=== PATIENT | female | born 1965 | race Asian ===

== ENCOUNTER 2024-02-24 08:40 | Outpatient (RCR) | payer BC, SELFPAY ==
[2024-02-24 09:08] LABS: Basophils # (Auto) 0.1 Thou/mm3 (0.0-0.2); Basophils % (Auto) 1 % (0-2.5); Eosinophils # (Auto) 0.2 Thou/mm3 (0.0-0.5); Eosinophils % (Auto) 4 % (0-10); Hematocrit 33.9 % (36.0-46.0); Hemoglobin 11.6 g/dL (12.0-16.0); Immature Granulocytes % (Auto) 0 % (0-0); Immature Granulocytes Auto 0.01 Thou/mm3 (0.00-0.00); Lymphocytes # (Auto) 1.3 Thou/mm3 (1.0-4.8); Lymphocytes % (Auto) 26 % (10-50); Mean Corpuscular HGB Conc 34.2 g/dl (31.0-37.0); Mean Corpuscular Hemoglobin 33.7 pg (25.0-35.0); Mean Corpuscular Volume 99 fL (80-100); Monocytes # (Auto) 0.4 Thou/mm3 (0.0-0.8); Monocytes % (Auto) 9 % (0-12); Neutrophils # (Auto) 2.9 Thou/mm3 (1.8-7.7); Neutrophils % (Auto) 60 % (37-80); Nucleated Red Blood Cell % 0 /100 WBC (0); Platelet Count 222 Thou/mm3 (140-440); RDW Standard Deviation 54.1 fL (36.4-46.3); Red Blood Count 3.44 Miln/mm3 (4.00-5.20); White Blood Count 4.9 Thou/mm3 (3.6-11.0)
[2024-02-24 09:29] LABS: Alanine Aminotransferase 17 U/L (10-49); Albumin, Serum 4.2 gm/dL (3.5-5.0); Albumin/Globulin Ratio 1.4 (1.2-2.2); Alkaline Phosphatase 96 U/L (46-116); Anion Gap 6 (7-16); Aspartate Amino Transferase 24 U/L (0-34); BUN/Creatinine Ratio 23 Ratio (12-20); Bilirubin,Total 0.4 mg/dL (0.3-1.2); Blood Urea Nitrogen 16 mg/dL (9-23); Calcium 9.4 mg/dL (8.3-10.6); Calcium (Corrected) 9.4 mg/dL (8.5-10.1); Chloride 104 mMol/L (98-107); Creatinine (Component) 0.7 mg/dL (0.6-1.3); Globulin 3.1 gm/dL (2.3-3.5); Glucose 156 mg/dL (74-106); Osmolality,Calculated 279 (275-295); Potassium 3.4 mMol/L (3.4-5.1); Sodium 138 mMol/L (136-145); Total Protein 7.3 gm/dL (5.7-8.2); eGFR > 60 See Note
[2024-02-24 09:48] LABS: CA 15-3 25.4 U/mL (<32.4); Carcinoembryonic Antigen 2.6 ng/mL (0.0-5.0)
== END 2024-03-13 23:59 | disposition home or self-care (01) ==
LOC: SCTC 08:40
PROVIDERS: PCP Family Medicine; Referring Provider Internal Medicine Hematology & Oncology; Visit Provider Internal Medicine Hematology & Oncology
DX: Z51.11 Encounter for antineoplastic chemotherapy (principal); C50.912 Malignant neoplasm of unspecified site of left female breast; C78.7 Secondary malignant neoplasm of liver and intrahepatic bile duct; C78.02 Secondary malignant neoplasm of left lung; C78.01 Secondary malignant neoplasm of right lung; Z17.0 Estrogen receptor positive status [ER+]; Z17.21 Progesterone receptor positive status; Z17.32 Human epidermal growth factor receptor 2 negative status; Z90.12 Acquired absence of left breast and nipple
CPT/HCPCS: 80053; 82378; 85025; 86300; 96367; 96413; A4216; J1642; J2405; J7060; J9358

== ENCOUNTER 2024-03-22 08:44 | Outpatient (RCR) | payer BC, SELFPAY ==
[2024-03-22 09:10] LABS: Basophils # (Auto) 0.1 Thou/mm3 (0.0-0.2); Basophils % (Auto) 1 % (0-2.5); Eosinophils # (Auto) 0.2 Thou/mm3 (0.0-0.5); Eosinophils % (Auto) 2 % (0-10); Hemoglobin 11.8 g/dL (12.0-16.0); Immature Granulocytes % (Auto) 0 % (0-0); Immature Granulocytes Auto 0.04 Thou/mm3 (0.00-0.00); Lymphocytes # (Auto) 1.6 Thou/mm3 (1.0-4.8); Lymphocytes % (Auto) 18 % (10-50); Mean Corpuscular HGB Conc 33.7 g/dl (31.0-37.0); Mean Corpuscular Hemoglobin 33.1 pg (25.0-35.0); Mean Corpuscular Volume 98 fL (80-100); Monocytes # (Auto) 0.6 Thou/mm3 (0.0-0.8); Monocytes % (Auto) 7 % (0-12); Neutrophils # (Auto) 6.5 Thou/mm3 (1.8-7.7); Neutrophils % (Auto) 73 % (37-80); Nucleated Red Blood Cell % 0 /100 WBC (0); Platelet Count 245 Thou/mm3 (140-440); RDW Standard Deviation 50.3 fL (36.4-46.3); Red Blood Count 3.56 Miln/mm3 (4.00-5.20); White Blood Count 8.9 Thou/mm3 (3.6-11.0)
[2024-03-22 09:28] LABS: Alanine Aminotransferase 13 U/L (10-49); Albumin, Serum 4.5 gm/dL (3.5-5.0); Albumin/Globulin Ratio 1.5 (1.2-2.2); Alkaline Phosphatase 100 U/L (46-116); Anion Gap 8 (7-16); Aspartate Amino Transferase 18 U/L (0-34); BUN/Creatinine Ratio 20 Ratio (12-20); Bilirubin,Total 0.4 mg/dL (0.3-1.2); Blood Urea Nitrogen 16 mg/dL (9-23); Calcium 9.5 mg/dL (8.3-10.6); Calcium (Corrected) 9.5 mg/dL (8.5-10.1); Carbon Dioxide 29.5 mMol/L (20.0-31.0); Chloride 103 mMol/L (98-107); Creatinine (Component) 0.8 mg/dL (0.6-1.3); Glucose 151 mg/dL (74-106); Osmolality,Calculated 283 (275-295); Potassium 3.6 mMol/L (3.4-5.1); Sodium 140 mMol/L (136-145); Total Protein 7.5 gm/dL (5.7-8.2); eGFR > 60 See Note
[2024-03-22 09:46] LABS: CA 15-3 27.7 U/mL (<32.4); Carcinoembryonic Antigen 2.7 ng/mL (0.0-5.0)
== END 2024-04-13 23:59 | disposition home or self-care (01) ==
LOC: SCTC 08:44
PROVIDERS: PCP Family Medicine; Referring Provider Family Medicine; Visit Provider Internal Medicine Hematology & Oncology
DX: Z51.11 Encounter for antineoplastic chemotherapy (principal); C50.912 Malignant neoplasm of unspecified site of left female breast; C78.7 Secondary malignant neoplasm of liver and intrahepatic bile duct; C78.02 Secondary malignant neoplasm of left lung; C78.01 Secondary malignant neoplasm of right lung; Z17.0 Estrogen receptor positive status [ER+]; Z17.21 Progesterone receptor positive status; Z17.32 Human epidermal growth factor receptor 2 negative status; Z90.12 Acquired absence of left breast and nipple
CPT/HCPCS: 80053; 82378; 85025; 86300; 96367; 96413; A4216; J1642; J2405; J7060; J9358

== ENCOUNTER 2024-05-10 08:08 | Outpatient (RCR) | payer BC, SELFPAY ==
[2024-04-19 09:22] LABS: Basophils # (Auto) 0.1 Thou/mm3 (0.0-0.2); Basophils % (Auto) 1 % (0-2.5); Eosinophils # (Auto) 0.2 Thou/mm3 (0.0-0.5); Eosinophils % (Auto) 4 % (0-10); Hematocrit 33.3 % (36.0-46.0); Hemoglobin 10.9 g/dL (12.0-16.0); Immature Granulocytes % (Auto) 1 % (0-0); Immature Granulocytes Auto 0.03 Thou/mm3 (0.00-0.00); Lymphocytes # (Auto) 1.5 Thou/mm3 (1.0-4.8); Lymphocytes % (Auto) 29 % (10-50); Mean Corpuscular HGB Conc 32.7 g/dl (31.0-37.0); Mean Corpuscular Hemoglobin 32.8 pg (25.0-35.0); Mean Corpuscular Volume 100 fL (80-100); Monocytes # (Auto) 0.5 Thou/mm3 (0.0-0.8); Monocytes % (Auto) 10 % (0-12); Neutrophils # (Auto) 2.9 Thou/mm3 (1.8-7.7); Neutrophils % (Auto) 56 % (37-80); Nucleated Red Blood Cell % 0 /100 WBC (0); Platelet Count 259 Thou/mm3 (140-440); RDW Standard Deviation 50.8 fL (36.4-46.3); Red Blood Count 3.32 Miln/mm3 (4.00-5.20); White Blood Count 5.2 Thou/mm3 (3.6-11.0)
[2024-04-19 09:28] LABS: Alanine Aminotransferase 13 U/L (10-49); Albumin, Serum 3.9 gm/dL (3.5-5.0); Albumin/Globulin Ratio 1.1 (1.2-2.2); Alkaline Phosphatase 101 U/L (46-116); Anion Gap 6 (7-16); Aspartate Amino Transferase 22 U/L (0-34); BUN/Creatinine Ratio 20 Ratio (12-20); Bilirubin,Total 0.3 mg/dL (0.3-1.2); Blood Urea Nitrogen 16 mg/dL (9-23); Calcium 9.3 mg/dL (8.3-10.6); Calcium (Corrected) 9.4 mg/dL (8.5-10.1); Carbon Dioxide 29.1 mMol/L (20.0-31.0); Chloride 105 mMol/L (98-107); Creatinine (Component) 0.8 mg/dL (0.6-1.3); Globulin 3.5 gm/dL (2.3-3.5); Glucose 145 mg/dL (74-106); Osmolality,Calculated 283 (275-295); Potassium 3.6 mMol/L (3.4-5.1); Sodium 140 mMol/L (136-145); Total Protein 7.4 gm/dL (5.7-8.2); eGFR > 60 See Note
[2024-04-19 09:57] LABS: CA 15-3 30.7 U/mL (<32.4); Carcinoembryonic Antigen 2.7 ng/mL (0.0-5.0)
[2024-05-10 08:53] LABS: Basophils # (Auto) 0.1 Thou/mm3 (0.0-0.2); Basophils % (Auto) 2 % (0-2.5); Eosinophils # (Auto) 0.2 Thou/mm3 (0.0-0.5); Eosinophils % (Auto) 4 % (0-10); Hematocrit 32.3 % (36.0-46.0); Hemoglobin 10.6 g/dL (12.0-16.0); Immature Granulocytes % (Auto) 0 % (0-0); Immature Granulocytes Auto 0.02 Thou/mm3 (0.00-0.00); Lymphocytes # (Auto) 1.2 Thou/mm3 (1.0-4.8); Lymphocytes % (Auto) 25 % (10-50); Mean Corpuscular HGB Conc 32.8 g/dl (31.0-37.0); Mean Corpuscular Hemoglobin 32.7 pg (25.0-35.0); Mean Corpuscular Volume 100 fL (80-100); Monocytes # (Auto) 0.5 Thou/mm3 (0.0-0.8); Monocytes % (Auto) 10 % (0-12); Neutrophils # (Auto) 2.9 Thou/mm3 (1.8-7.7); Neutrophils % (Auto) 60 % (37-80); Nucleated Red Blood Cell % 0 /100 WBC (0); Platelet Count 244 Thou/mm3 (140-440); RDW Standard Deviation 52.5 fL (36.4-46.3); Red Blood Count 3.24 Miln/mm3 (4.00-5.20); White Blood Count 4.8 Thou/mm3 (3.6-11.0)
[2024-05-10 09:13] LABS: Alanine Aminotransferase 11 U/L (10-49); Albumin, Serum 3.8 gm/dL (3.5-5.0); Albumin/Globulin Ratio 1.2 (1.2-2.2); Alkaline Phosphatase 81 U/L (46-116); Anion Gap 7 (7-16); Aspartate Amino Transferase 23 U/L (0-34); BUN/Creatinine Ratio 18 Ratio (12-20); Bilirubin,Total 0.5 mg/dL (0.3-1.2); Blood Urea Nitrogen 14 mg/dL (9-23); Calcium 9.6 mg/dL (8.3-10.6); Calcium (Corrected) 9.8 mg/dL (8.5-10.1); Carbon Dioxide 28.4 mMol/L (20.0-31.0); Chloride 104 mMol/L (98-107); Creatinine (Component) 0.8 mg/dL (0.6-1.3); Globulin 3.2 gm/dL (2.3-3.5); Glucose 155 mg/dL (74-106); Osmolality,Calculated 281 (275-295); Potassium 3.7 mMol/L (3.4-5.1); Sodium 139 mMol/L (136-145); eGFR > 60 See Note
[2024-05-10 13:01] LABS: CA 15-3 25.5 U/mL (<32.4); Carcinoembryonic Antigen 2.8 ng/mL (0.0-5.0)
== END 2024-05-14 23:59 | disposition home or self-care (01) ==
LOC: SCTC 08:08
PROVIDERS: PCP Family Medicine; Referring Provider Family Medicine; Visit Provider Internal Medicine Hematology & Oncology
DX: Z51.11 Encounter for antineoplastic chemotherapy (principal); C50.912 Malignant neoplasm of unspecified site of left female breast; C78.7 Secondary malignant neoplasm of liver and intrahepatic bile duct; C78.02 Secondary malignant neoplasm of left lung; C78.01 Secondary malignant neoplasm of right lung; Z17.0 Estrogen receptor positive status [ER+]; Z17.21 Progesterone receptor positive status; Z17.32 Human epidermal growth factor receptor 2 negative status
CPT/HCPCS: 80053; 82378; 85025; 86300; 96367; 96413; A4216; J1642; J2405; J7060; J9358

== ENCOUNTER 2024-06-07 08:41 | Outpatient (RCR) | payer BC, SELFPAY ==
--- NOTE | 2024-05-24 16:17 | CTCFLWUP_ITS ---
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 12/15/2014: Patient underwent left breast biopsy. Pathology showed invasive lobular carcinoma. She had palpable supraclavicular lymph node. The tumor was ER positive, WA positive as well as HER2/murtaza Positive (3+). Ms. Tinsley was treated with neoadjuvant chemotherapy including Herceptin. Ms. Tinsley had left mastectomy and sentinel lymph node biopsy. She had 4.6 cm residual tumor with 1 of 2 sentinel lymph nodes being positive. Ms. Tinsley had adjuvant radiation therapy and treated with tamoxifen following radiation therapy. August 2019: Patient felt a lump left chest wall. 09/30/2019: FNA with attempted local excision on 10/08/2019. Pathology showed 1.3 cm tumor, mixed invasive ductal and lobular carcinoma. Again the tumor was ER, WA as well as HER2/murtaza positive inferior lateral and posterior margins were positive. 11/23/2019: Patient underwent wider resection including removal of the pectoralis major muscle followed by reconstruction with left latissimus dorsi flap.. Tamoxifen was discontinued and she was started on letrozole. 10/31/2022: Patient was found to have right supraclavicular lymphadenopathy. Biopsy showed metastatic breast cancer. She was also found to have involvement of the liver and the lungs patient was started on Faslodex. She had a second opinion at [facility]. Faslodex was discontinued after 2 doses. Patient was started on Trastuzumab Deruxtecan (Enhertu). 12/20/2022: Patient received first dose of Trastuzumab Deruxtecan (Enhertu) 02/28/2023: CT scan of the chest abdomen and pelvis with contrast which was compared to previous scans done on 11/01/2022 09/12/2023: Patient received last dose of Trastuzumab Deruxtecan (Enhertu). 05/16/2023: CT scan of the chest abdomen and pelvis with contrast was done which was compared to CT scans done on 02/28/2023. 05/16/2023: MRI of the abdomen with and without contrast was compared to previous PET/CT scan done on 11/06/[address] scans done on the same date 05/16/2023. 10/09/2023 Fam-trastuzumab deruxtecan-nxki ( Enhertu). PAST MEDICAL HISTORY: Bladder stone treated with lithotripsy in 2021 OTHER MEDICAL HISTORY/CONDITIONS: Left breast cancer - dx 2014 Osteoarthirits Left mastectomy wtih [place] node biopsy 2016 wide excision left chest mass including left pectoralis muscle - 11/23/2019 Left breast reconstruction Right supraclavicular biopsy - 11/03 ?Clone Other Med Hx? FAMILY HISTORY: Cancer History:?Pat 1st cousin - brest dx age 60 ?Clone Family Hx? 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 MEDICATIONS: 1. anastrozole - 1 mg 1 tab Daily 2. multivitamin - 1 Capsule Daily?Palabra Meds? Medications Last Reconciled by Concepción Whaley MA on 05/24/2024 ALLERGIES: No Known Drug Allergies REVIEW OF SYSTEMS: A complete 14-point review of systems was performed and is negative except as noted in interval history. PHYSICAL EXAMINATION: VITAL SIGNS: PAIN: 0 - No pain ECOG Performance Status: 1 - Symptomatic; ambulatory; restricted in strenuous activity GENERAL APPEARANCE: Appears well, in no apparent distress, appropriately interactive. HEENT: Normocephalic, no temporal wasting, normal conjunctiva, no scleral icterus, normal hearing, lips without lesions, neck normal range of motion. CARDIOVASCULAR: Not assessed. PULMONARY: Normal respiratory effort, no respiratory distress or use of accessory muscles, speaking in full sentences, no tachypnea. EXTREMITIES: No pedal edema or cyanosis. SKIN: Normal skin appearance. NEUROLOGIC: Alert and oriented x4. PSHYCHIATRIC: Appropriate affect, mood normal, behavior normal, intact thought and speech. LABORATORY DATA: I have personally reviewed and interpreted each of the patient?s relevant lab tests, abnormal findings are below: Date 05/10/24 ??WHITE?BLOOD?COUNT?(Thou/mm3) 4.8 ??RED?BLOOD?COUNT?(Miln/mm3) 3.24?L ??HEMOGLOBIN?(gm/dl) 10.6?L ??HEMATOCRIT?(%) 32.3?L ??PLATELET?COUNT?(Thou/mm3) 244 ??NEUTROPHILS?%,?AUTO?(%) 60 ??LYMPH?%,?AUTO?(%) 25 ??NEUTROPHILS,?AUTO?(Thou/mm3) 2.9 ASSESSMENT/PLAN: Metastatic ER positive, WA positive, HER2/murtaza overexpressed 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 Patient was initially diagnosed in 2014. She was in menopause at that time. Patient received antiendocrine therapy and Herceptin in the adjuvant setting. She did have residual tumor after the neoadjuvant therapy but only Herceptin was offered and not TDM 1. I am not sure if TDM 1 was approved at that time. Patient then continued letrozole for few months before stopping it. At reoccurrence patient was initially started on Faslodex after she was not able to tolerated it was stopped. The patient is started back on Fam-trastuzumab deruxtecan-nxki ( Enhertu) here in [place] on 10/09/2023. She is tolerating it very well without any significant side effects Previously patient was treated with tamoxifen as well as anastrozole. She also received 2 doses of Faslodex. BRCA 1 and 2 as well as [facility] cancer test did not show any abnormal genes Continue Fam-trastuzumab deruxtecan-nxki ( Enhertu). Will follow-up on the CT scan of the chest abdomen and pelvis with IV contrast . Ordered x-ray chest per patient today as needed if she notices any chest pain shortness of breath Will continue x-ray chest once in a month to catch pneumonitis early if any Foundation 1 do not reveal any mutations CT scan is stable with no evidence of progression of disease Will proceed with the next cycle of Enhertu. Echo stable next 1 due in May CBC CMP CEA CA 15-3 MRI brain iron studies ferritin RETURN TO CLINIC: I will see her back in the clinic in 2 months. BILLING AND COMPLIANCE: I reviewed external records from providers outside my specialty as summarized above. I spent a total of 50 minutes on this patient?s care on the day of their visit excluding time spent related to any billed procedures. This time includes time spent with the patient as well as time spent documenting in the medical record, reviewing patients records and tests, obtaining history, placing orders, communicating with other healthcare professionals, counseling the patient, family or caregiver, and/or care coordination for the diagnoses above. Electronically Signed by: Cuauhtemoc Ortega MD T: 4:15 PM CC: PCP: Referring: Samia Ramírez This document was completed utilizing speech recognition software. Grammatical errors, random word insertions, pronoun errors, and incomplete sentences are an occasional consequence of this system due to software limitations, ambient noise, and hardware issues. Any formal questions or concerns about the content, text or information contained within the body of this dictation should be directly addressed to the provider for clarification.
[2024-06-07 09:43] LABS: Basophils # (Auto) 0.1 Thou/mm3 (0.0-0.2); Basophils % (Auto) 1 % (0-2.5); Eosinophils # (Auto) 0.2 Thou/mm3 (0.0-0.5); Eosinophils % (Auto) 3 % (0-10); Hematocrit 34.1 % (36.0-46.0); Hemoglobin 11.3 g/dL (12.0-16.0); Immature Granulocytes % (Auto) 1 % (0-0); Immature Granulocytes Auto 0.03 Thou/mm3 (0.00-0.00); Lymphocytes # (Auto) 1.3 Thou/mm3 (1.0-4.8); Lymphocytes % (Auto) 24 % (10-50); Mean Corpuscular HGB Conc 33.1 g/dl (31.0-37.0); Mean Corpuscular Hemoglobin 32.1 pg (25.0-35.0); Mean Corpuscular Volume 97 fL (80-100); Monocytes # (Auto) 0.6 Thou/mm3 (0.0-0.8); Monocytes % (Auto) 10 % (0-12); Neutrophils # (Auto) 3.4 Thou/mm3 (1.8-7.7); Neutrophils % (Auto) 61 % (37-80); Nucleated Red Blood Cell % 0 /100 WBC (0); Platelet Count 220 Thou/mm3 (140-440); RDW Standard Deviation 50.8 fL (36.4-46.3); Red Blood Count 3.52 Miln/mm3 (4.00-5.20); White Blood Count 5.6 Thou/mm3 (3.6-11.0)
[2024-06-07 10:06] LABS: Alanine Aminotransferase 12 U/L (10-49); Albumin/Globulin Ratio 1.2 (1.2-2.2); Alkaline Phosphatase 84 U/L (46-116); Anion Gap 7 (7-16); Aspartate Amino Transferase 22 U/L (0-34); BUN/Creatinine Ratio 23 Ratio (12-20); Bilirubin,Total 0.4 mg/dL (0.3-1.2); Blood Urea Nitrogen 16 mg/dL (9-23); Calcium 9.3 mg/dL (8.3-10.6); Calcium (Corrected) 9.3 mg/dL (8.5-10.1); Carbon Dioxide 27.8 mMol/L (20.0-31.0); Chloride 106 mMol/L (98-107); Creatinine (Component) 0.7 mg/dL (0.6-1.3); Globulin 3.3 gm/dL (2.3-3.5); Glucose 123 mg/dL (74-106); Osmolality,Calculated 283 (275-295); Potassium 3.6 mMol/L (3.4-5.1); Sodium 141 mMol/L (136-145); Total Protein 7.3 gm/dL (5.7-8.2); eGFR > 60 See Note
[2024-06-07 10:30] LABS: CA 15-3 24.9 U/mL (<32.4); Carcinoembryonic Antigen 2.7 ng/mL (0.0-5.0)
== END 2024-06-11 23:59 | disposition home or self-care (01) ==
LOC: SCTC 08:41
PROVIDERS: PCP Family Medicine; Referring Provider Family Medicine; Visit Provider Internal Medicine Hematology & Oncology
DX: Z51.11 Encounter for antineoplastic chemotherapy (principal); C50.912 Malignant neoplasm of unspecified site of left female breast; C78.7 Secondary malignant neoplasm of liver and intrahepatic bile duct; C78.02 Secondary malignant neoplasm of left lung; C78.01 Secondary malignant neoplasm of right lung; Z17.0 Estrogen receptor positive status [ER+]; Z17.21 Progesterone receptor positive status; Z17.32 Human epidermal growth factor receptor 2 negative status; Z78.0 Asymptomatic menopausal state; Z79.811 Long term (current) use of aromatase inhibitors
CPT/HCPCS: 80053; 82378; 85025; 86300; 96367; 96413; 99212; A4216; J1642; J2405; J7050; J7060; J9358; G0463

== ENCOUNTER → 2024-06-07 | Outpatient (CLI) | payer BC, SELFPAY ==
--- NOTE | 2024-06-07 13:00 | XR_ITS ---
Examination: Bone densitometry Date and time of exam:June 07, 2024 1318 hrs. Indications: Menopause age 50 Technique: Lumbar spine and hip total bone mineralization values of an calculated. Peak reference and age match control results have been displayed. Findings: Lumbar spine total bone mineralization is0.957 gm/cm2. This is 0.8 standard deviations below peak reference. This is 0.5 standard deviations above age-matched controls. Hip total bone mineralization is 0.938 gm/cm2 This is 0.0 standard deviations at peak reference. This is 0.9 standard deviations above age-matched controls Impression: There is normal mineralization based on lumbar spine measurements. There is normal mineralization based on hip measurements
== END | disposition home or self-care (01) ==
LOC: CDIM 13:12
PROVIDERS: Referring Provider Internal Medicine Hematology & Oncology; Visit Provider Internal Medicine Hematology & Oncology
DX: C50.112 Malignant neoplasm of central portion of left female breast (principal)
CPT/HCPCS: 77080

== ENCOUNTER → 2024-06-17 | Outpatient (CLI) | payer BC, SELFPAY ==
--- NOTE | 2024-06-17 13:00 | XR_ITS ---
Examination: CT chest with intravenous contrast CT abdomen with intravenous contrast CT pelvis with intravenous contrast CT chest without intravenous contrast CT abdomen without intravenous contrast CT pelvis without intravenous contrast 2-D coronal and sagittal reconstructions Time of exam: 2024 1304 hours COMPARISON: February 02, 2024 INDICATIONS: Diagnosis malignant neoplasm central portion left female breast, mastectomy 2015, restaging, noncalcified pulmonary nodules on CT chest February 02, 2024 CTDI: vol (mGy) : 21.8 DLP: (mGycm): 940 Technique: Multiple axial images of the chest, abdomen and pelvis with intravenous contrast, 3.0 mm slice thickness. Images obtained post intravenous injection Isovue 370 60 cc. 2-D sagittal and coronal reconstructions. Low dose protocols were performed. One or more of the following dose reduction techniques were used; automated exposure control, adjustment of the mA and/or KV according to patient size, use of iterative reconstruction technique. Findings: No thoracic aortic aneurysm dilatation Mild calcification proximal left anterior descending coronary artery No pulmonary artery filling defects No paratracheal tracheobronchial or bronchopulmonary adenopathy Significant opacity in the right upper lobe and both lung bases Small calcified granulomas in both lungs but no current noncalcified pulmonary nodules identified No pleural disease Left mastectomy No chest wall mass or axillary lymphadenopathy Stable 6 mm posterior right lobe liver cyst No interval hepatic metastases Cholelithiasis No pancreatic or adrenal mass Atrophic left kidney with significant left renal parenchymal scar formation No interval abdominal or pelvic lymphadenopathy Aorta is not enlarged Normal appendix No pelvic mass There remains irregular thickening of the urinary bladder wall, on the right side laterally measuring up to 14 mm Moderate osteopenia No interval osseous metastatic disease IMPRESSION: Significant bilateral pneumonia Small calcified granulomas in the lungs but no current noncalcified pulmonary nodules compared to the CT chest February 02, 2024 No interval metastatic disease in the chest abdomen pelvis compared to February 02, 2024 There remains abnormally irregular thickening of the urinary bladder wall, differential would include cystitis, bladder carcinoma not excluded, clinical correlation advised
== END | disposition home or self-care (01) ==
PROVIDERS: PCP Family Medicine; Referring Provider Internal Medicine Hematology & Oncology; Visit Provider Internal Medicine Hematology & Oncology
DX: J18.9 Pneumonia, unspecified organism (principal); R91.8 Other nonspecific abnormal finding of lung field; N32.89 Other specified disorders of bladder; C50.112 Malignant neoplasm of central portion of left female breast
CPT/HCPCS: 71270; 74178; A4649; Q9967

== ENCOUNTER 2024-06-28 08:39 | Outpatient (RCR) | payer BC, SELFPAY | END 2024-07-12 23:59 | disposition home or self-care (01) | LOC: SCTC 08:39 | PROVIDERS: PCP Family Medicine; Referring Provider Family Medicine; Visit Provider Internal Medicine Hematology & Oncology | DX: C50.112 Malignant neoplasm of central portion of left female breast (principal); Z17.0 Estrogen receptor positive status [ER+]; Z17.21 Progesterone receptor positive status; Z17.32 Human epidermal growth factor receptor 2 negative status; C78.7 Secondary malignant neoplasm of liver and intrahepatic bile duct; C78.02 Secondary malignant neoplasm of left lung; C78.01 Secondary malignant neoplasm of right lung; Z53.8 Procedure and treatment not carried out for other reasons | CPT/HCPCS: J2405; J7050 ==

== ENCOUNTER → 2024-06-28 | Outpatient (CLI) | payer BC, SELFPAY ==
--- NOTE | 2024-06-28 10:21 | XR_ITS ---
Examination: PA lateral chest 2 views TECHNIQUE: Upright PA lateral chest 2 views INDICATIONS: Diagnosis malignant neoplasm left breast FINDINGS: Significant parenchymal disease right upper lobe and left base Surgical clips left axilla and overlying the left breast Normal heart size Right subclavian Port-A-Cath tip SVC Moderate osteopenia IMPRESSION: Significant parenchymal disease right upper lobe and left base, differential would include chronic infiltrates, pneumonia, the appearance should be clinically correlated Please see the CT chest report June 17, 2024
== END | disposition home or self-care (01) ==
LOC: SDIM 10:16
PROVIDERS: PCP Family Medicine; Referring Provider Internal Medicine Hematology & Oncology; Visit Provider Internal Medicine Hematology & Oncology
DX: R91.8 Other nonspecific abnormal finding of lung field (principal); C50.112 Malignant neoplasm of central portion of left female breast
CPT/HCPCS: 71046

== ENCOUNTER → 2024-08-03 | Outpatient (CLI) | payer BC, SELFPAY ==
--- NOTE | 2024-08-03 14:00 | ECHO_ITS ---
Transthoracic Echo Report Ht (in): 62 Wt (lb): 143 Exam Location: Echo Lab Status: Preadmit Senior Accounting Specialist: NÉSTOR Hull^^^^ Indications: Procedure Performed: BP: / HR: MEASUREMENTS (Male / Female) Normal Values 2D ECHO LV Diastolic Diameter PLAX 4.3 cm 4.2 - 5.9 / 3.9 - 5.3 cm LV Systolic Diameter PLAX 2.9 cm IVS Diastolic Thickness 0.7 cm 0.6 - 1.0 / 0.6 - 0.9 cm LVPW Diastolic Thickness 0.7 cm 0.6 - 1.0 / 0.6 - 0.9 cm LV Relative Wall Thickness 0.3 LVOT Diameter 1.8 cm Aortic Root Diameter 3.4 cm LA Systolic Diameter LX 2.4 cm 3.0 - 4.0 / 2.7 - 3.8 cm LA Volume Index 23.3 cm?/m? 16 - 28 cm?/m? DOPPLER AV Peak Velocity 146.0 cm/s AV Peak Gradient 8.5 mmHg AV Mean Gradient 5.5 mmHg AV Velocity Time Integral 29.6 cm AI Peak Velocity 183.0 cm/s AI Peak Gradient 13.4 mmHg AI Pressure Half Time 993.5 ms LVOT Peak Velocity 106.0 cm/s LVOT Peak Gradient 4.5 mmHg LVOT Velocity Time Integral 23.1 cm AV Area Cont Eq vti 2.0 cm? AV Area Cont Eq pk 1.8 cm? MV Area PHT 3.1 cm? Mitral E Point Velocity 78.4 cm/s Mitral A Point Velocity 86.6 cm/s Mitral E to A Ratio 0.9 LV E' Lateral Velocity 7.0 cm/s Mitral E to LV E' Lateral Ratio 11.1 LV E' Septal Velocity 9.0 cm/s Mitral E to LV E' Septal Ratio 8.7 TR Peak Velocity 247.5 cm/s TR Peak Gradient 24.5 mmHg RVOT Peak Velocity 56.2 cm/s FINDINGS Left Ventricle Normal left ventricular size, wall thickness, systolic function with no obvious regional wall motion abnormalities. There is grade I diastolic dysfunction of the left ventricle (impaired relaxation pattern). The left ventricular ejection fraction is normal, estimated at 55-60%. Right Ventricle The right ventricle is normal in size and systolic function. The estimated right ventricular systolic pressure, 25 mmHg. Left Atrium The left atrium is normal by two-dimensional, color flow and Doppler imaging with no structural abnormalities, no thrombus formation present. Right Atrium The right atrium is normal by two-dimensional imaging, color flow and Doppler imaging with no structural abnormalities, no thrombus formation present. Atrial Septum The interatrial septum appears normal with no evidence of a shunt. Aorta The aorta is normal by two-dimensional, color flow and Doppler interrogation. Mitral Valve Trace to mild mitral regurgitation. Mild mitral annular calcification. Aortic Valve Aortic valve sclerosis. Tricuspid Valve There is mild tricuspid valve regurgitation. Pulmonic Valve Trivial pulmonic valve regurgitation. Vessels The pulmonary artery appears normal. The inferior vena cava pulmonary and hepatic veins appear normal. Pericardium The pericardium is normal by two-dimensional imaging. There is no significant pericardial effusion. CONCLUSIONS Indication:Malignant neoplasm of central portion of left female breast. Normal LV size and function with an estimated EF of 60 to 65%. Normal diastolic function. Normal RV size and function with normal RVSP around 25 to 30 mmHg. Trace MR mild TR Arron Reilly (Electronically Signed) Final Date: 03 August 2024 18:47
--- NOTE | 2024-08-03 14:45 | XR_ITS ---
Examination: PA lateral chest 2 views TECHNIQUE: Upright PA lateral chest 2 views Exam date and time: August 03, 2024 1557 hours Comparison June 28, 2024 INDICATIONS: Diagnosis malignant neoplasm left female breast, significant parenchymal disease right upper lobe on chest x-ray June 28, 2024 FINDINGS: There remains prominent parenchymal disease in the right upper lobe Multiple surgical clips overlying the left axilla and breast Left mastectomy Normal heart size IMPRESSION: Extensive parenchymal disease remains in the right upper lobe, recommend continued follow-up
== END | disposition home or self-care (01) ==
LOC: SDIM 14:00
PROVIDERS: PCP Internal Medicine Hematology & Oncology; Referring Provider Internal Medicine Hematology & Oncology; Visit Provider Internal Medicine Hematology & Oncology
DX: I08.1 Rheumatic disorders of both mitral and tricuspid valves (principal); C50.112 Malignant neoplasm of central portion of left female breast
CPT/HCPCS: 71046; 93306

== ENCOUNTER 2024-08-09 11:04 | Outpatient (RCR) | payer BC, SELFPAY ==
--- NOTE | 2024-08-09 14:10 | CTCFLWUP_ITS ---
Patient: ANNA TINSLEY : 1965 Page 2 of 2 FOLLOW UP NOTE DATE OF SERVICE: 08/09/2024 NAME: ANNA TINSLEY ACCOUNT: [id number] : 1965 AGE: 59 INTERVAL HISTORY: There was a suspicion for pneumonitis at the last visit. Patient was leaving for [facility] and was started on steroids. Chief Complaint Follow-up after steroid treatment, concern about lung imaging findings History of Present Illness Gee Castillo, a 59-year-old female with a history of cancer, presents for follow-up after being prescribed steroids at her last visit. The patient reports she has been doing well since her last appointment, with no new problems or symptoms. She recently returned from a trip to care for her 81-year-old mother, which she completed without issues. The patient states she took the prescribed steroids as directed, with her last dose taken the day before this visit. She denies any adverse effects from the medication, although she notes that her blood sugar levels may have increased while on the steroids. At one point during the steroid treatment, she checked her blood sugar and found it to be 230 mg/dL while on 60 mg of prednisone. The patient also mentions weight gain as a side effect of the steroid treatment. The patient reports adherence to her prescribed treatments and has not discontinued any medications. She has not experienced any new symptoms or changes in her overall health status since her last visit. The patient denies any recent hospitalizations or emergency department visits. Medical History - Elevated blood sugar (230) while on prednisone Surgical History - Multiple surgeries in the left axilla Medications and Supplements - Steroids - Last dose taken yesterday - Increased blood sugar levels - Prednisone 60 mg - Increased blood sugar to 230 - Side effect: weight gain Family History - Mother: Living, age 81, described as very sharp still Social History - Living Situation: Lives in [facility] at the [facility]. Apartment costs $1200 per month, including utilities. - Family Structure: Has a mother who is 81 years old Review of Systems General: Negative for fever, chills, fatigue. Endocrine: Positive for elevated blood sugar. ONCOLOGY HISTORY: DIAGNOSIS: Malignant neoplasm of central portion of left female breast [ICD10] C50.112 DATE OF DIAGNOSIS: 09/30/2019 STAGE/TNM: Stage III initial ER/WI HER2 positive TREATMENT HISTORY: Care?Plan Start?Date Cycle Day Intent Fam?-?trastuzumab?deruxtecan 10/09/2023 1 21 Palliative Trastuzumab?6?mg/kg? 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 12/15/2014: Patient underwent left breast biopsy. Pathology showed invasive lobular carcinoma. She had palpable supraclavicular lymph node. The tumor was ER positive, WI positive as well as HER2/murtaza Positive (3+). Ms. Tinsley was treated with neoadjuvant chemotherapy including Herceptin. Ms. Tinsley had left mastectomy and sentinel lymph node biopsy. She had 4.6 cm residual tumor with 1 of 2 sentinel lymph nodes being positive. Ms. Tinsley had adjuvant radiation therapy and treated with tamoxifen following radiation therapy. August 2019: Patient felt a lump left chest wall. 09/30/2019: FNA with attempted local excision on 10/08/2019. Pathology showed 1.3 cm tumor, mixed invasive ductal and lobular carcinoma. Again the tumor was ER, WI as well as HER2/murtaza positive inferior lateral and posterior margins were positive. 11/23/2019: Patient underwent wider resection including removal of the pectoralis major muscle followed by reconstruction with left latissimus dorsi flap.. Tamoxifen was discontinued and she was started on letrozole. 10/31/2022: Patient was found to have right supraclavicular lymphadenopathy. Biopsy showed metastatic breast cancer. She was also found to have involvement of the liver and the lungs patient was started on Faslodex. She had a second opinion at [facility]. Faslodex was discontinued after 2 doses. Patient was started on Trastuzumab Deruxtecan (Enhertu). 12/20/2022: Patient received first dose of Trastuzumab Deruxtecan (Enhertu) 02/28/2023: CT scan of the chest abdomen and pelvis with contrast which was compared to previous scans done on 11/01/2022 09/12/2023: Patient received last dose of Trastuzumab Deruxtecan (Enhertu). 05/16/2023: CT scan of the chest abdomen and pelvis with contrast was done which was compared to CT scans done on 02/28/2023. 05/16/2023: MRI of the abdomen with and without contrast was compared to previous PET/CT scan done on 11/06/[address] scans done on the same date 05/16/2023. 10/09/2023 Fam-trastuzumab deruxtecan-nxki ( Enhertu). PAST MEDICAL HISTORY: Bladder stone treated with lithotripsy in 2021 Laboratory, Imaging, and Diagnostic Test Results - Blood glucose: 230 mg/dL (date not specified) - Chest X-ray (08/03/2014): Extensive parenchymal disease in the right upper lobe and left base. Multiple surgeries in the left axilla. - CT scan (06/17/2024): Significant bilateral pneumonia, small calcified granuloma in the lungs, no calcified nodules, no interval metastatic disease. - CT scan (05/16/2023): Right upper lobe ground glass nodule measuring 4 mm (previously 5 mm), stable left apical scarring, stable nodular and linear density within the left lower lobe with nodular component measuring 9 mm. - CT scan (02/02/2024): 4 mm nodule in the right lobe, 15 mm nodule in the left lower lobe, 10 mm nodule in the left lower lobe. - CT scan (05/2019): Right upper lobe ground glass nodule measuring 5 mm. - Echocardiogram (05/10/2024): Normal. OTHER MEDICAL HISTORY/CONDITIONS: Left breast cancer - dx 2014 Osteoarthirits Left mastectomy 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 anastrozole - 1 mg 1 tab Daily 2. multivitamin - 1 Capsule Daily Medications Last Reconciled by Concepción Whaley MA on 08/09/2024 ALLERGIES: No Known Drug Allergies REVIEW OF SYSTEMS: A complete 14-point review of systems was performed and is negative except as noted in interval history. PHYSICAL EXAMINATION: VITAL SIGNS: Temperature?99.1, B/P?143/88, Oxygen?Saturation?98% Weight?145?lbs PAIN: 0 - No pain ECOG Performance Status: 0 - Asymptomatic and fully active GENERAL APPEARANCE: Appears well, in no apparent distress, appropriately interactive. HEENT: Normocephalic, no temporal wasting, normal conjunctiva, no scleral icterus, normal hearing, lips without lesions, neck normal range of motion. CARDIOVASCULAR: Not assessed. PULMONARY: Normal respiratory effort, no respiratory distress or use of accessory muscles, speaking in full sentences, no tachypnea. EXTREMITIES: No pedal edema or cyanosis. SKIN: Normal skin appearance. NEUROLOGIC: Alert and oriented x4. PSHYCHIATRIC: Appropriate affect, mood normal, behavior normal, intact thought and speech. LABORATORY DATA: I have personally reviewed and interpreted each of the patient?s relevant lab tests, abnormal findings are below: Date 06/07/24 08/09/24 ??WHITE?BLOOD?COUNT?(Thou/mm3) 5.6 9.6 ??RED?BLOOD?COUNT?(Miln/mm3) 3.52?L 4.24 ??HEMOGLOBIN?(gm/dl) 11.3?L 13.7 ??HEMATOCRIT?(%) 34.1?L 41.3 ??PLATELET?COUNT?(Thou/mm3) 220 199 ??NEUTROPHILS?%,?AUTO?(%) 61 68 ??LYMPH?%,?AUTO?(%) 24 21 ??NEUTROPHILS,?AUTO?(Thou/mm3) 3.4 6.5 ??GLUCOSE,RANDOM?(mg/dL) 123?H 115?H ??BLOOD?UREA?NITROGEN?(mg/dL) 16 12 ??CREATININE?(mg/dL) 0.70 0.80 ??SODIUM?(mmol/L) 141 141 ??POTASSIUM?(mmol/L) 3.6 3.6 ??CHLORIDE?(mmol/L) 106 103 ??CrCl?(CandG)?(ml/min) 87.86 78.62 ??AST/SGOT?(Unit/L) 22 21 ??ALT/SGPT?(Unit/L) 12 21 ??ALKALINE?PHOSPHATASE?(Unit/L) 84 89 ??BILIRUBIN,?TOTAL?(mg/dL) 0.4 0.4 ??PROTEIN?TOTAL?(gm/dl) 7.3 7.2 ??ALBUMIN,?SERUM?(gm/dl) 4.0 4.2 ??GLOBULIN?(gm/dl) 3.3 3.0 ??ALBUMIN/GLOBULIN?RATIO 1.2 1.4 ??CALCIUM,?SERUM?(mg/dL) 9.3 9.6 ??CALCIUM?SERUM?(CORRECTED)?(mg/dL) 9.3 9.6 ASSESSMENT/PLAN: Metastatic ER positive, WI positive, HER2/murtaza overexpressed 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 Patient was initially diagnosed in 2014. She was in menopause at that time. Patient received antiendocrine therapy and Herceptin in the adjuvant setting. She did have residual tumor after the neoadjuvant therapy but only Herceptin was offered and not TDM 1. I am not sure if TDM 1 was approved at that time. Patient then continued letrozole for few months before stopping it. At reoccurrence patient was initially started on Faslodex after she was not able to tolerated it was stopped. The patient is started back on Fam-trastuzumab deruxtecan-nxki ( Enhertu) here in [place] on 10/09/2023. She is tolerating it very well without any significant side effects Previously patient was treated with tamoxifen as well as anastrozole. She also received 2 doses of Faslodex. BRCA 1 and 2 as well as [facility] cancer test did not show any abnormal genes Patient was on Enhertu X-ray chest done on June 14, 20162024 was concerning for pneumonitis. Patient was placed on steroids and repeat x-ray chest 08/03/2024 is still showing the same changes and patient remained asymptomatic Reviewed old CT scan from 02/28/2023 and from 2023 and patient's scans seems to have same scarring as recent x-ray chest Given patient's clinical findings do not match with the recent x-ray I will send patient for second review Will get CT chest outside and get it compared with older scan to make sure patient do not have any underlying pneumonitis and all the findings are stable Continue to hold Enhertu If patient is proven to have pneumonitis we will restart on Herceptin And if only scarring is noted will resume Enhertu Patient endorsed understanding RTC in 2 weeks ORDERS: Order # Description [id number] CT Scan + Chest + With W/O Contrast [id number] Follow Up 2 Week + Comprehensive Metabolic Panel - 12 + CBC with Auto Diff [id number] Cardiac ECHO [id number] Infusion 1 Hour [id number] CBC + Comprehensive Metabolic Panel [id number] Lab Appointment [id number] Follow Up Appointment [id number] Infusion 1 Hour [id number] CBC + Comprehensive Metabolic Panel [id number] Lab Appointment [id number] Follow Up Appointment [id number] Infusion 1 Hour [id number] CBC + Comprehensive Metabolic Panel [id number] Lab Appointment [id number] Follow Up Appointment [id number] Infusion 1 Hour [id number] CBC + Comprehensive Metabolic Panel [id number] Lab Appointment [id number] Follow Up Appointment [id number] Infusion 1 Hour [id number] CBC + Comprehensive Metabolic Panel [id number] Lab Appointment [id number] Follow Up Appointment [id number] Cardiac ECHO [id number] Infusion 1 Hour [id number] CBC + Comprehensive Metabolic Panel [id number] Lab Appointment [id number] Follow Up Appointment [id number] Infusion 1 Hour [id number] CBC + Comprehensive Metabolic Panel [id number] Lab Appointment [id number] Follow Up Appointment [id number] Infusion 1 Hour [id number] CBC + Comprehensive Metabolic Panel [id number] Lab Appointment [id number] Follow Up Appointment [id number] Infusion 1 Hour [id number] CBC + Comprehensive Metabolic Panel [id number] Lab Appointment [id number] Follow Up Appointment [id number] Infusion 1 Hour [id number] CBC + Comprehensive Metabolic Panel [id number] Lab Appointment [id number] Follow Up Appointment [id number] Cardiac ECHO [id number] Infusion 1 Hour [id number] CBC + Comprehensive Metabolic Panel [id number] Lab Appointment [id number] Follow Up Appointment [id number] Infusion 1 Hour [id number] CBC + Comprehensive Metabolic Panel [id number] Lab Appointment [id number] Follow Up Appointment [id number] Infusion 1 Hour [id number] CBC + Comprehensive Metabolic Panel [id number] Lab Appointment [id number] Follow Up Appointment RETURN TO CLINIC: BILLING AND COMPLIANCE: I reviewed external records from providers outside my specialty as summarized above. I spent a total of 50 minutes on this patient?s care on the day of their visit excluding time spent related to any billed procedures. This time includes time spent with the patient as well as time spent documenting in the medical record, reviewing patients records and tests, obtaining history, placing orders, communicating with other healthcare professionals, counseling the patient, family or caregiver, and/or care coordination for the diagnoses above. Electronically Signed by: Cuauhtemoc Ortega MD T: 2:07 PM CC: PCP: Referring: Samia Ramírez This document was completed utilizing speech recognition software. Grammatical errors, random word insertions, pronoun errors, and incomplete sentences are an occasional consequence of this system due to software limitations, ambient noise, and hardware issues. Any formal questions or concerns about the content, text or information contained within the body of this dictation should be directly addressed to the provider for clarification.
== END 2024-08-11 23:59 | disposition home or self-care (01) ==
LOC: SCTC 11:04
PROVIDERS: PCP Family Medicine; Referring Provider Family Medicine; Visit Provider Internal Medicine Hematology & Oncology
DX: C50.112 Malignant neoplasm of central portion of left female breast (principal); Z17.0 Estrogen receptor positive status [ER+]; Z17.21 Progesterone receptor positive status; Z17.32 Human epidermal growth factor receptor 2 negative status; C78.7 Secondary malignant neoplasm of liver and intrahepatic bile duct; C78.02 Secondary malignant neoplasm of left lung; C78.01 Secondary malignant neoplasm of right lung; R91.8 Other nonspecific abnormal finding of lung field; Z90.12 Acquired absence of left breast and nipple; Z92.3 Personal history of irradiation
CPT/HCPCS: 99212; G0463

== ENCOUNTER → 2024-08-09 | Outpatient (CLI) | payer BC, SELFPAY ==
[2024-08-09 13:06] LABS: Basophils # (Auto) 0.1 Thou/mm3 (0.0-0.2); Basophils % (Auto) 1 % (0-2.5); Eosinophils # (Auto) 0.1 Thou/mm3 (0.0-0.5); Eosinophils % (Auto) 1 % (0-10); Hematocrit 41.3 % (36.0-46.0); Hemoglobin 13.7 g/dL (12.0-16.0); Immature Granulocytes % (Auto) 1 % (0-0); Immature Granulocytes Auto 0.07 Thou/mm3 (0.00-0.00); Lymphocytes % (Auto) 21 % (10-50); Mean Corpuscular HGB Conc 33.2 g/dl (31.0-37.0); Mean Corpuscular Hemoglobin 32.3 pg (25.0-35.0); Mean Corpuscular Volume 97 fL (80-100); Monocytes # (Auto) 0.9 Thou/mm3 (0.0-0.8); Monocytes % (Auto) 9 % (0-12); Neutrophils # (Auto) 6.5 Thou/mm3 (1.8-7.7); Neutrophils % (Auto) 68 % (37-80); Nucleated Red Blood Cell % 0 /100 WBC (0); Platelet Count 199 Thou/mm3 (140-440); RDW Standard Deviation 47.5 fL (36.4-46.3); Red Blood Count 4.24 Miln/mm3 (4.00-5.20); White Blood Count 9.6 Thou/mm3 (3.6-11.0)
[2024-08-09 13:22] LABS: Alanine Aminotransferase 21 U/L (10-49); Albumin, Serum 4.2 gm/dL (3.5-5.0); Albumin/Globulin Ratio 1.4 (1.2-2.2); Alkaline Phosphatase 89 U/L (46-116); Anion Gap 7 (7-16); Aspartate Amino Transferase 21 U/L (0-34); BUN/Creatinine Ratio 15 Ratio (12-20); Bilirubin,Total 0.4 mg/dL (0.3-1.2); Blood Urea Nitrogen 12 mg/dL (9-23); Calcium 9.6 mg/dL (8.3-10.6); Calcium (Corrected) 9.6 mg/dL (8.5-10.1); Carbon Dioxide 30.7 mMol/L (20.0-31.0); Chloride 103 mMol/L (98-107); Creatinine (Component) 0.8 mg/dL (0.6-1.3); Glucose 115 mg/dL (74-106); Osmolality,Calculated 281 (275-295); Potassium 3.6 mMol/L (3.4-5.1); Sodium 141 mMol/L (136-145); Total Protein 7.2 gm/dL (5.7-8.2); eGFR > 60 See Note
== END | disposition home or self-care (01) ==
LOC: SCTO 12:26
PROVIDERS: PCP Family Medicine; Referring Provider Internal Medicine Hematology & Oncology; Visit Provider Internal Medicine Hematology & Oncology
DX: C50.112 Malignant neoplasm of central portion of left female breast (principal)
CPT/HCPCS: 36415; 80053; 85025

== ENCOUNTER → 2024-08-25 | Outpatient (CLI) | payer BC, SELFPAY ==
--- NOTE | 2024-08-25 14:30 | XR_ITS ---
Examination: CT chest with intravenous contrast CT chest without intravenous contrast 2-D reconstructions Date and time of exam:August 25, [address] chest June 17, 2024 INDICATIONS: Diagnosis malignant neoplasm cervical portion left female breast, scarring, pneumonitis, restaging CTDI:vol (mGy) 9.82 DLP: (mGycm) 288 Technique: Multiple axial sections of the thorax have been obtained. 3 mm slice thickness, from the hemidiaphragms to above the apices of the lungs. Mediastinal and lung density settings have been obtained. Intravenous contrast administered 60 cc Isovue-370. Noncontrast images have also been obtained. 2-D sagittal coronal images obtained. Low dose protocols were performed. One or more of the following dose reduction techniques were used; automated exposure control, adjustment of the mA and/or KV according to patient size, use of iterative reconstruction technique. Findings: No thoracic aortic aneurysmal dilatation No pulmonary artery filling defects Left mastectomy no breast chest wall or axillary lesions Stable scarring in both lungs compared to June 17, 2024 No interval pneumonia No interval pulmonary nodular metastatic disease No interval liver or splenic lesions Cholelithiasis No pancreatic or adrenal mass Kidneys partially visualized minimal dilatation left renal calyces IMPRESSION: Stable scarring in both lungs compared with June 17, 2024 No interval mediastinal lymphadenopathy No interval pneumonia pulmonary edema or pulmonary nodules Cholelithiasis
== END | disposition home or self-care (01) ==
LOC: SCAT 14:19
PROVIDERS: PCP Family Medicine; Referring Provider Internal Medicine Hematology & Oncology; Visit Provider Internal Medicine Hematology & Oncology
DX: J18.9 Pneumonia, unspecified organism (principal); K80.20 Calculus of gallbladder without cholecystitis without obstruction; C50.112 Malignant neoplasm of central portion of left female breast
CPT/HCPCS: 71270; A4649; Q9967

== ENCOUNTER 2024-08-30 15:32 | Outpatient (RCR) | payer BC, SELFPAY ==
[2024-08-24 09:37] LABS: Basophils # (Auto) 0.1 Thou/mm3 (0.0-0.2); Basophils % (Auto) 1 % (0-2.5); Eosinophils # (Auto) 0.1 Thou/mm3 (0.0-0.5); Eosinophils % (Auto) 2 % (0-10); Hematocrit 37.3 % (36.0-46.0); Hemoglobin 12.9 g/dL (12.0-16.0); Immature Granulocytes % (Auto) 0 % (0-0); Immature Granulocytes Auto 0.02 Thou/mm3 (0.00-0.00); Lymphocytes # (Auto) 1.6 Thou/mm3 (1.0-4.8); Lymphocytes % (Auto) 27 % (10-50); Mean Corpuscular HGB Conc 34.6 g/dl (31.0-37.0); Mean Corpuscular Hemoglobin 31.3 pg (25.0-35.0); Mean Corpuscular Volume 91 fL (80-100); Monocytes # (Auto) 0.5 Thou/mm3 (0.0-0.8); Monocytes % (Auto) 9 % (0-12); Neutrophils # (Auto) 3.7 Thou/mm3 (1.8-7.7); Neutrophils % (Auto) 61 % (37-80); Nucleated Red Blood Cell % 0 /100 WBC (0); Platelet Count 215 Thou/mm3 (140-440); RDW Standard Deviation 43.1 fL (36.4-46.3); Red Blood Count 4.12 Miln/mm3 (4.00-5.20)
[2024-08-24 09:48] LABS: Alanine Aminotransferase 16 U/L (10-49); Albumin, Serum 4.3 gm/dL (3.5-5.0); Albumin/Globulin Ratio 1.4 (1.2-2.2); Alkaline Phosphatase 81 U/L (46-116); Anion Gap 9 (7-16); Aspartate Amino Transferase 19 U/L (0-34); BUN/Creatinine Ratio 17 Ratio (12-20); Bilirubin,Total 0.4 mg/dL (0.3-1.2); Blood Urea Nitrogen 12 mg/dL (9-23); Calcium 9.5 mg/dL (8.3-10.6); Calcium (Corrected) 9.5 mg/dL (8.5-10.1); Carbon Dioxide 27.1 mMol/L (20.0-31.0); Chloride 101 mMol/L (98-107); Creatinine (Component) 0.7 mg/dL (0.6-1.3); Glucose 154 mg/dL (74-106); Osmolality,Calculated 276 (275-295); Potassium 3.8 mMol/L (3.4-5.1); Sodium 137 mMol/L (136-145); Total Protein 7.3 gm/dL (5.7-8.2); eGFR > 60 See Note
--- NOTE | 2024-09-07 08:42 | CTCFLWUP_ITS ---
Patient: ANNA TINSLEY : 1965 Page 5 of 7 FOLLOW UP NOTE DATE OF SERVICE: 08/30/2024 NAME: ANNA TINSLEY ACCOUNT: [id number] : 1965 AGE: 59 INTERVAL HISTORY: Chief Complaint Follow-up after pneumonia, review of CT scan results History of Present Illness Laureano Castillo, a patient with a history of metastatic cancer, presents for follow-up. She reports no current shortness of breath or lung problems. The patient continues her daily walking routine without issues. She notes that she has not had cancer treatment since May. Anna mentions a slight weight gain of about 5 pounds, which she attributes to steroid use. She reports that her hair is growing back. The patient is currently taking anastrazole (an anti-endocrine therapy) and previously tolerated Herceptin without problems. She denies any side effects from her c urrent medications. The patient discusses her previous liver involvement, for which she was seen at [facility]. She was recommended to start HER-2 blocking treatment, which she agrees is important. Anna expresses a willingness to continue follow-up care with [facility] via telehealth. Medications and Supplements - Steroids - Caused weight gain of about 5 pounds - Nestrosol - Herceptin - No problems reported with previous use Review of Systems General: Negative for weight loss. Respiratory: Negative for shortness of breath. History of Present Illness Laureano Castillo, a patient with a history of metastatic cancer, presents for follow-up. She reports no current shortness of breath or lung problems. The patient continues her daily walking routine without issues. She notes that she has not had cancer treatment since May. Medications and Supplements - Steroids - Caused weight gain of about 5 pounds - Nestrosol - Herceptin - No problems reported with previous use Review of Systems General: Negative for weight loss. Respiratory: Negative for shortness of breath. History of Present Illness Laureano Castillo, a patient with a history of metastatic cancer, presents for follow-up. She reports no current shortness of breath or lung problems. The patient continues her daily walking routine without issues. She notes that she has not had cancer treatment since May. Medical History - Elevated blood sugar (230) while on prednisone Surgical History - Multiple surgeries in the left axilla Medications and Supplements - Steroids - Last dose taken yesterday - Increased blood sugar levels - Prednisone 60 mg - Increased blood sugar to 230 - Side effect: weight gain Family History - Mother: Living, age 81, described as very sharp still Social History - Living Situation: Lives in housing at the [facility]. Apartment costs $1200 per month, including utilities. - Family Structure: Has a mother who is 81 years old Review of Systems General: Negative for fever, chills, fatigue. Endocrine: Positive for elevated blood sugar. Physical Examination General: Patient appears to have gained approximately 5 pounds. Face looks good. Hair looks good and is growing. Laboratory, Imaging, and Diagnostic Test Results - CT scan (date not specified): - No interval pneumonia - Stable scarring compared to June 17, 2024 - Small calcified granulomas in the lungs - No current non-calcified nodules compared to CT scan 2023 - Remains regular thickening of the vulva later on - Previous CT scan results: - January 2024: First CT at this facility (details not provided) - June 17, 2024: Significant bilateral pneumonia reported ONCOLOGY HISTORY:?[facility] Hx? DIAGNOSIS: Malignant neoplasm of central portion of left female breast [ICD10] C50.112 DATE OF DIAGNOSIS: 09/30/2019 STAGE/TNM: Stage III initial ER/ME HER2 positive TREATMENT HISTORY: Care?Plan Start?Date Cycle Day Intent Fam?-?trastuzumab?deruxtecan 10/09/2023 1 21 Palliative Trastuzumab?6?mg/kg? 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 12/15/2014: Patient underwent left breast biopsy. Pathology showed invasive lobular carcinoma. She had palpable supraclavicular lymph node. The tumor was ER positive, ME positive as well as HER2/murtaza Positive (3+). Ms. Tinsley was treated with neoadjuvant chemotherapy including Herceptin. Ms. Tinsley had left mastectomy and sentinel lymph node biopsy. She had 4.6 cm residual tumor with 1 of 2 sentinel lymph nodes being positive. Ms. Tinsley had adjuvant radiation therapy and treated with tamoxifen following radiation therapy. August 2019: Patient felt a lump left chest wall. 09/30/2019: FNA with attempted local excision on 10/08/2019. Pathology showed 1.3 cm tumor, mixed invasive ductal and lobular carcinoma. Again the tumor was ER, ME as well as HER2/murtaza positive inferior lateral and posterior margins were positive. 11/23/2019: Patient underwent wider resection including removal of the pectoralis major muscle followed by reconstruction with left latissimus dorsi flap.. Tamoxifen was discontinued and she was started on letrozole. 10/31/2022: Patient was found to have right supraclavicular lymphadenopathy. Biopsy showed metastatic breast cancer. She was also found to have involvement of the liver and the lungs patient was started on Faslodex. She had a second opinion at [facility]. Faslodex was discontinued after 2 doses. Patient was started on Trastuzumab Deruxtecan (Enhertu). 12/20/2022: Patient received first dose of Trastuzumab Deruxtecan (Enhertu) 02/28/2023: CT scan of the chest abdomen and pelvis with contrast which was compared to previous scans done on 11/01/2022 09/12/2023: Patient received last dose of Trastuzumab Deruxtecan (Enhertu). 05/16/2023: CT scan of the chest abdomen and pelvis with contrast was done which was compared to CT scans done on 02/28/2023. 05/16/2023: MRI of the abdomen with and without contrast was compared to previous PET/CT scan done on 11/06/[address] scans done on the same date 05/16/2023. 10/09/2023 Fam-trastuzumab deruxtecan-nxki ( Enhertu). PAST MEDICAL HISTORY: Bladder stone treated with lithotripsy in 2021 Laboratory, Imaging, and Diagnostic Test Results - Blood glucose: 230 mg/dL (date not specified) - Chest X-ray (08/03/2014): Extensive parenchymal disease in the right upper lobe and left base. Multiple surgeries in the left axilla. - CT scan (06/17/2024): Significant bilateral pneumonia, small calcified granuloma in the lungs, no calcified nodules, no interval metastatic disease. - CT scan (05/16/2023): Right upper lobe ground glass nodule measuring 4 mm (previously 5 mm), stable left apical scarring, stable nodular and linear density within the left lower lobe with nodular component measuring 9 mm. - CT scan (02/02/2024): 4 mm nodule in the right lobe, 15 mm nodule in the left lower lobe, 10 mm nodule in the left lower lobe. - CT scan (05/2019): Right upper lobe ground glass nodule measuring 5 mm. - Echocardiogram (05/10/2024): Normal. 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 anastrozole - 1 mg 1 tab Daily 2. multivitamin - 1 Capsule Daily?Palabra Meds? Medications Last Reconciled by Concepción Whaley MA on 08/30/2024 ALLERGIES: No Known Drug Allergies REVIEW OF SYSTEMS: A complete 14-point review of systems was performed and is negative except as noted in interval history. PHYSICAL EXAMINATION:?[facility] PE? VITAL SIGNS: Temperature?100.1, B/P?143/94, Oxygen?Saturation?94% PAIN: 0 - No pain ECOG Performance Status: 0 - Asymptomatic and fully active GENERAL APPEARANCE: Appears well, in no apparent distress, appropriately interactive. HEENT: Normocephalic, no temporal wasting, normal conjunctiva, no scleral icterus, normal hearing, lips without lesions, neck normal range of motion. CARDIOVASCULAR: Not assessed. PULMONARY: Normal respiratory effort, no respiratory distress or use of accessory muscles, speaking in full sentences, no tachypnea. EXTREMITIES: No pedal edema or cyanosis. SKIN: Normal skin appearance. NEUROLOGIC: Alert and oriented x4. PSHYCHIATRIC: Appropriate affect, mood normal, behavior normal, intact thought and speech. LABORATORY DATA: I have personally reviewed and interpreted each of the patient?s relevant lab tests, abnormal findings are below: Date 08/09/24 08/24/24 ??WHITE?BLOOD?COUNT?(Thou/mm3) 9.6 6.0 ??RED?BLOOD?COUNT?(Miln/mm3) 4.24 4.12 ??HEMOGLOBIN?(gm/dl) 13.7 12.9 ??HEMATOCRIT?(%) 41.3 37.3 ??PLATELET?COUNT?(Thou/mm3) 199 215 ??NEUTROPHILS?%,?AUTO?(%) 68 61 ??LYMPH?%,?AUTO?(%) 21 27 ??NEUTROPHILS,?AUTO?(Thou/mm3) 6.5 3.7 ??GLUCOSE,RANDOM?(mg/dL) 115?H 154?H ??BLOOD?UREA?NITROGEN?(mg/dL) 12 12 ??CREATININE?(mg/dL) 0.80 0.70 ??SODIUM?(mmol/L) 141 137 ??POTASSIUM?(mmol/L) 3.6 3.8 ??CHLORIDE?(mmol/L) 103 101 ??CrCl?(CandG)?(ml/min) 78.62 89.35 ??AST/SGOT?(Unit/L) 21 19 ??ALT/SGPT?(Unit/L) 21 16 ??ALKALINE?PHOSPHATASE?(Unit/L) 89 81 ??BILIRUBIN,?TOTAL?(mg/dL) 0.4 0.4 ??PROTEIN?TOTAL?(gm/dl) 7.2 7.3 ??ALBUMIN,?SERUM?(gm/dl) 4.2 4.3 ??GLOBULIN?(gm/dl) 3.0 3.0 ??ALBUMIN/GLOBULIN?RATIO 1.4 1.4 ??CALCIUM,?SERUM?(mg/dL) 9.6 9.5 ??CALCIUM?SERUM?(CORRECTED)?(mg/dL) 9.6 9.5 ASSESSMENT/PLAN:?Sarah Ortega Assessment/Plan? Metastatic ER positive, ME positive, HER2/murtaza overexpressed 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 Patient was initially diagnosed in 2014. She was in menopause at that time. Patient received antiendocrine therapy and Herceptin in the adjuvant setting. She did have residual tumor after the neoadjuvant therapy but only Herceptin was offered and not TDM 1. I am not sure if TDM 1 was approved at that time. Patient then continued letrozole for few months before stopping it. At reoccurrence patient was initially started on Faslodex after she was not able to tolerated it was stopped. The patient is started back on Fam-trastuzumab deruxtecan-nxki ( Enhertu) here in [place] on 10/09/2023. She is tolerating it very well without any significant side effects Previously patient was treated with tamoxifen as well as anastrozole. She also received 2 doses of Faslodex. BRCA 1 and 2 as well as [facility] cancer test did not show any abnormal genes Metastatic Cancer Assessment: Patient has a history of metastatic cancer, previously treated with Herceptin. Last treatment was in May. Recent CT scan shows no interval pneumonia compared to June 17, 2024. There are small calcified granulomas in the lungs, but no current non-calcified nodules compared to the [address]23 CT scan. Regular thickening of the vulva is noted. Patient is ME positive and HER2 over- expressed. Patient was on Enhertu X-ray chest done on June 14, 20162024 was concerning for pneumonitis. Patient was placed on steroids and repeat x-ray chest 08/03/2024 is still showing the same changes and patient remained asymptomatic Reviewed old CT scan from 02/28/2023 and from 2023 and patient's scans seems to have same scarring as recent x-ray chest Cont Herceptin Plan: - Await Naterra test results (expected in 2 weeks) - continue Herceptin - Continue anastrazole (anti-endocrine therapy) - Arrange telehealth [facility] with [facility] for [facility] - Consider referral to [place] if Qian-Yoni is not approved Resolved Bilateral Pneumonia Assessment: Patient had significant bilateral pneumonia noted on June 17, [address] scan shows no interval pneumonia, suggesting resolution. Patient reports no current problems with lungs or shortness of breath. Continues daily walking without issues. Clinician suspects the pneumonia has resolved, likely due to steroid treatment. Plan: - Monitor for any recurrence of respiratory symptoms.symptoms from enertu Weight Gain Assessment: Patient appears to have gained approximately 5 pounds, possibly due to steroid treatment. Clinician notes patient's face looks good and overall appearance is younger. Plan: - Continue to monitor weight Patient endorsed understanding RTC in 2 weeks ORDERS: Order # Description [id number] Follow Up Appointment [id number] Infusion 1 Hour RETURN TO CLINIC: BILLING AND COMPLIANCE: I reviewed external records from providers outside my specialty as summarized above. I spent a total of 50 minutes on this patient?s care on the day of their visit excluding time spent related to any billed procedures. This time includes time spent with the patient as well as time spent documenting in the medical record, reviewing patients records and tests, obtaining history, placing orders, communicating with other healthcare professionals, counseling the patient, family or caregiver, and/or care coordination for the diagnoses above. Electronically Signed by: Cuauhtemoc Ortega MD T: 8:39 AM CC: PCP: Referring: Samia Ramírez This document was completed utilizing speech recognition software. Grammatical errors, random word insertions, pronoun errors, and incomplete sentences are an occasional consequence of this system due to software limitations, ambient noise, and hardware issues. Any formal questions or concerns about the content, text or information contained within the body of this dictation should be directly addressed to the provider for clarification.
== END 2024-09-11 23:59 | disposition home or self-care (01) ==
LOC: SCTC 15:32
PROVIDERS: PCP Family Medicine; Referring Provider Family Medicine; Visit Provider Internal Medicine Hematology & Oncology
DX: C50.112 Malignant neoplasm of central portion of left female breast (principal); C78.7 Secondary malignant neoplasm of liver and intrahepatic bile duct; C78.02 Secondary malignant neoplasm of left lung; C78.01 Secondary malignant neoplasm of right lung; Z17.0 Estrogen receptor positive status [ER+]; Z17.21 Progesterone receptor positive status; Z17.32 Human epidermal growth factor receptor 2 negative status; Z90.12 Acquired absence of left breast and nipple; Z92.3 Personal history of irradiation
CPT/HCPCS: 36591; 80053; 85025; 99212; A4216; J1642; G0463

== ENCOUNTER 2024-09-01 11:32 | Emergency (ER) | payer BC, SELFPAY ==
[2024-09-01 11:32] VITALS: BP 162/101; PULSE 91; RESP 14; TEMP 36.9; O2SAT 96; BMI 26.3
--- NOTE | 2024-09-01 11:34 | EDNOTE_ITS ---
ED Allergic Reaction RME/HPI General Chief complaint: Allergic Reaction Stated complaint: ALLERGIC REACTION Time Seen by Provider: 09/01/24 11:34 Arrival date/time: 09/01/24 11:32 59-year-old female presents to the ED with a complaint of nasal and throat congestion after she received gadolinium for an MRI procedure. She was brought over from MRI urgently. She denies any shortness of breath, tongue swelling or difficulty swallowing She denies any recent illness with fever, chills, cough. Patient states she has had gadolinium previously but was always placed in a drip. She states the gadolinium given today. was given IV push. Mode of arrival: wheelchair (From MRI) Limitations: no limitations Related Data Previous Rx's ?Medication ?Instructions ?Recorded cetirizine 10 mg tablet (Zyrtec) 10 mg PO QDAY #7 tabs 09/01/24 famotidine 20 mg tablet (Pepcid) 20 mg PO BID #14 tabs 09/01/24 Allergies Allergy/AdvReac Type Severity Reaction Status Date / Time No Known Allergies Allergy Unverified 09/01/24 11:34 Review of Systems Review of Systems Systems Reviewed: All systems reviewed, normal except as documented Past Medical History Past Medical History Comments PMH COMMENT: Breast cancer original diagnosis 2014. Received chemotherapy and radiation as well as Herceptin. Recurrence of localized breast cancer in 2019. Continued with Enhertu. Mets to lung and liver in 2022. Stopped Enhertu due to pneumonitis. Has annual MRIs of the brain for evaluation of mets. ED Exam Narrative Physical exam: Pleasant 59-year-old female, no acute distress. Nasal congestion and throat clearing noted. Lungs are clear, no wheezing. No stridor. She is tachycardic. General Limitations: Present no limitations General appearance: Present alert and in no apparent distress Head Head exam: Present atraumatic, normocephalic and normal inspection Eye Eye exam: Present normal appearance and periorbital swelling (Lower eyelid swelling.); Absent scleral icterus or conjunctival injection ENT ENT exam: Present normal exam, normal oropharynx, mucous membranes moist and other (No tongue or uvula swelling.) Neck Neck exam: Present normal inspection, trachea midline and other (Negative stridor.) Chest Chest inspection: Present normal inspection and symmetric chest wall rise Respiratory Respiratory exam: Present normal lung sounds bilaterally; Absent respiratory distress, wheezes, stridor, accessory muscle use or prolonged expiratory phase Cardiovascular Cardiovascular exam: Present normal rhythm, tachycardia and normal heart sounds; Absent irregular rhythm, systolic murmur or diastolic murmur Abdominal Exam Abdominal exam: Absent distention Extremities Exam Extremities exam: Present normal inspection Back Exam Back exam: Present full ROM Neurological Exam Neurological exam: Present alert and oriented X3 Psychiatric Psychiatric exam: Present normal affect and normal mood Skin Skin exam: Present warm, dry, intact and normal color Course Course Course Narrative: 09/01/24 11:32 59-year-old female presents to the ED with a complaint of nasal and throat congestion after she received gadolinium for an MRI procedure. She was brought over from MRI urgently. She denies any shortness of breath, tongue swelling or difficulty swallowing She denies any recent illness with fever, chills, cough. Pleasant 59-year-old female, no acute distress. Nasal congestion and throat clearing noted. Lungs are clear, no wheezing. No stridor. She is tachycardic. Patient was given dexamethasone 10 mg IV, diphenhydramine 25 mg IV, and famotidine 20 mg IV. Reevaluation x 2. Patient is feeling much improved with no wheezing or stridor. Nasal congestion and lower eyelid swelling have significantly improved since the administration of medications. Chest x-ray obtained: No acute process. Quality Measures none Orders Category Date Time Status XR chest 1V portable Stat Exams 09/01/24 12:07 Completed Dexamethasone Inj [Decadron Inj] Med 09/01/24 11:38 Discontinued 10 mg IV X1 ONE DiphenhydrAMINE INJ [Benadryl Inj] Med 09/01/24 11:39 Discontinued 25 mg IV X1 ONE Famotidine Inj [Pepcid Inj] Med 09/01/24 11:38 Discontinued 20 mg IVP X1 ONE Patient was given dexamethasone 10 mg IV, diphenhydramine 25 mg IV, and famotidine 20 mg IV. Reevaluation(s) Reevaluation #1: Patient is feeling much improved since her arrival after the administration of medications. Mild facial flushing and lower eyelid swelling have improved. Lungs are clear, no stridor or wheezing Time: 12:05 Reevaluation #2: Still feeling much improved. No further congestion. Lower eyelid swelling has significantly improved. No wheezing or stridor noted. Time: 13:01 Vital Signs Vital signs: Vital Signs Temperature 98.5 F 09/01/24 11:32 Pulse Rate 91 09/01/24 11:32 Respiratory Rate 14 09/01/24 11:32 Blood Pressure 162/101 H 09/01/24 11:32 Pulse Oximetry (%) 96 09/01/24 11:32 Oxygen Delivery Method Room Air 09/01/24 11:32 Allergic Reaction Patient data External records reviewed:: [facility] previous records Clinical information provided by:: patient Social determinants that could affect healthcare access:: none Patient has the following chronic illnesses:: Metastatic breast cancer How is presenting disease/condition affected by chronic disease/condition?: uneffected by Evaluation data The following diagnostics were reviewed and interpreted by me:: radiology exam(s) Lab and/or radiology exams considered but not ordered:: NONE Interpretation Summary: Chest x-ray negative. Medications / Prescriptions Medications or Prescriptions considered but not ordered:: None Medication administrations:: Medication Administration History Discontinued Medications Dexamethasone Sodium Phosphate (Dexamethasone Sod Phos Inj 10 Mg/Ml Vial) 10 mg IV X1 ONE Stop: 09/01/24 11:39 Last Admin: 09/01/24 11:48 Dose: 10 mg Documented By: TM Diphenhydramine HCl (Diphenhydramine Inj 50 Mg/Ml Vial) 25 mg IV X1 ONE Stop: 09/01/24 11:40 Last Admin: 09/01/24 11:48 Dose: 25 mg Documented By: TM Famotidine (Famotidine Inj 10 Mg/Ml Vial 2 Ml) 20 mg IVP X1 ONE Stop: 09/01/24 11:39 Last Admin: 09/01/24 11:48 Dose: 20 mg Documented By: TM Dexamethasone, diphenhydramine, famotidine. Consultations Consultation(s) initiated? (list below): No Diagnosis Differential Diagnosis allergic reaction: anaphylaxis, allergic reaction, angioedema, adverse reaction to drug and urticaria Most likely diagnosis given after review of the tests above:: Medication reaction Admission Indicated Admission indicated?: not indicated Explain why admission is indicated or not indicated:: Patient is improved and stable for discharge. Admission Request Was there a request for admission?: No Disposition Plan Disposition Plan: Discharge Discharge Attestation Discharge Attestation: The patient and all family members were given an opportunity to ask questions and understood the discharge instructions. Discharge instructions specifically effects, indications for sooner follow up or return to the emergency department, and the expected course of current diagnosis. Patient condition: Stable Discharge Plan Plan Patient Disposition: HOME (Self Care) Discharge Disposition comment: Stable and improved Prescriptions/Referrals Prescriptions/Med Rec: New famotidine [Pepcid] 20 mg tablet 20 mg PO BID Qty: 14 0RF cetirizine [Zyrtec] 10 mg tablet 10 mg PO QDAY Qty: 7 0RF Problem List Clinical Impression: Allergic reaction Patient/Caregiver Discharge Instructions Education Materials: ED Medicine Reaction: Allergic Additional Instructions: Follow-up with your primary care physician in 24 to 48 hours. Return to the ED for any new or worsening symptoms. Print Language: Honduran Stand Alone Forms: Maryam Award Info., Patient Portal Info Letter PA/CERTIFIED RECREATIONAL THERAPIST Supervising Physician PA/CRICKET Supervising Physician: Dr. Atkins
[2024-09-01] MEDS: FAMOTIDINE INJ 10 MG/ML VIAL 2 ML 20 MG IVP (11:48)
[2024-09-01] MEDS: DiphenhydrAMINE INJ 50 MG/ML VIAL 25 MG IV (11:48)
[2024-09-01] MEDS: DEXAMETHASONE SOD PHOS INJ 10 MG/ML VIAL IV (11:48)
--- NOTE | 2024-09-01 12:07 | XR_ITS ---
Examination: AP chest single view Technique one AP portable semiupright chest single view Date and time: September 01, 2024 12:19 PM Comparison August 03, 2024 INDICATIONS: Chest pain today, diagnosis malignant neoplasm left female breast FINDINGS: Stable parenchymal scar formation right upper lobe Normal heart size Numerous left axillary surgical clips Right subclavian Port-A-Cath tip satisfactory position No interval pneumonia or pulmonary edema Prominent osteopenia Minor blunting of the left lateral costophrenic angle IMPRESSION: No interval pneumonia or pulmonary edema
--- NOTE | 2024-09-01 12:22 | PC.NURSE ---
PT ARRIVES FROM MRI W/ALLERGIC REACTION TO CONTRAST. PT WAS HAD RASH/HIVES, FACIAL SWELLING, COUGHING, FELT WARMNESS ALL OVER, AND SEVERE RUNNY NOSE. PT GIVEN MEDICATIONS IV (SEE MAR). PT REPORTS SHE FEELS MUCH BETTER NOW AND IS READY TO GO HOME. PT NO LONGER HAS RASH OR REDNESS, OR FACIAL SWELLING AT THIS TIME. PT SITTING UP ON STRETCHER ON CELLPHONE, VSS ON TELE, CALL VILA IN REACH. WILL CONT W/POC.
[2024-09-01 12:27] VITALS: BP 151/96; PULSE 86; RESP 19; TEMP 36.8; O2SAT 99
== END 2024-09-01 13:30 | disposition home or self-care (01) ==
PROVIDERS: Emergency Provider Emergency Medicine
DX: T78.40XA Allergy, unspecified, initial encounter (principal); Z85.3 Personal history of malignant neoplasm of breast; C78.00 Secondary malignant neoplasm of unspecified lung; C78.7 Secondary malignant neoplasm of liver and intrahepatic bile duct
CPT/HCPCS: 71045; 99284; J1100; J1200; J3490

== ENCOUNTER → 2024-09-01 | Outpatient (CLI) | payer BC, SELFPAY ==
--- NOTE | 2024-09-01 09:56 | XR_ITS ---
Examination: MRI of brain without intravenous contrast. MRI brain with intravenous contrast. Date and time of exam:September 01, 2024 1036 hours INDICATIONS: Diagnosis malignant neoplasm left breast Technique: Multiple axial and sagittal images of the brain to been obtained. Siemens high-resolution 1.52 Anastasia short bore scanner utilized. Sagittal sections, T1 weighted images, TR 500, TE 14, are performed. Axial sections proton-density and T2-weighted images have been obtained. Inversion recovery axial images, TR 9260, TE 111, TR 2500. Diffusion weighted images, axial sections, TR 4800, TE 128, B value 1000. Axial sections, ADC map, TR 4800, TE 128. Axial and coronal images were also obtained post 14 cc gadolinium administered intravenously. Findings:: Enlargement of the sella turcica is not present. The optic chiasm and infundibular stalk are not remarkable. There is no localized enlargement of the medulla or aubrey. Fourth ventricle and cerebellar tonsils appear normal in position. No subacute area of hemorrhage density is seen. Fourth ventricle is midline. Mass in the cerebellopontine angle region is not evident. 7th and 8th nerve complexes exhibit symmetry Globes are symmetrical Orbital musculature including medial lateral rectus muscles do not exhibit abnormality Increased white matter signal is evident multiple punctate foci increased signal in the white matter Effacement of the cortical sulcal markings is not identified. Mass effect upon the ventricular system is not identified. Diffusion-weighted images demonstrate no focus of restricted diffusion Contrast images demonstrate no abnormal enhancing cerebellar or cerebral lesions Impression: Negative for acute hemorrhage mass effect or midline shift No acute infarct Multiple punctate foci increased signal in the white matter, differential would include accelerated chronic microvascular white matter change, demyelinating disease No abnormal enhancing cerebellar or cerebral lesions
== END | disposition home or self-care (01) ==
LOC: SMRI 09:44
PROVIDERS: PCP Family Medicine; Referring Provider Internal Medicine Hematology & Oncology; Visit Provider Internal Medicine Hematology & Oncology
DX: R90.82 White matter disease, unspecified (principal); C50.112 Malignant neoplasm of central portion of left female breast
CPT/HCPCS: 70553; A9579

== ENCOUNTER 2024-09-14 08:39 | Outpatient (RCR) | payer BC, SELFPAY ==
[2024-09-14 09:46] LABS: Basophils # (Auto) 0.1 Thou/mm3 (0.0-0.2); Basophils % (Auto) 1 % (0-2.5); Eosinophils # (Auto) 0.3 Thou/mm3 (0.0-0.5); Eosinophils % (Auto) 5 % (0-10); Hematocrit 37.2 % (36.0-46.0); Hemoglobin 12.6 g/dL (12.0-16.0); Immature Granulocytes % (Auto) 1 % (0-0); Immature Granulocytes Auto 0.03 Thou/mm3 (0.00-0.00); Lymphocytes # (Auto) 1.4 Thou/mm3 (1.0-4.8); Lymphocytes % (Auto) 23 % (10-50); Mean Corpuscular HGB Conc 33.9 g/dl (31.0-37.0); Mean Corpuscular Hemoglobin 31.3 pg (25.0-35.0); Mean Corpuscular Volume 93 fL (80-100); Monocytes # (Auto) 0.6 Thou/mm3 (0.0-0.8); Monocytes % (Auto) 10 % (0-12); Neutrophils # (Auto) 3.8 Thou/mm3 (1.8-7.7); Neutrophils % (Auto) 61 % (37-80); Nucleated Red Blood Cell % 0 /100 WBC (0); Platelet Count 181 Thou/mm3 (140-440); RDW Standard Deviation 43.3 fL (36.4-46.3); Red Blood Count 4.02 Miln/mm3 (4.00-5.20); White Blood Count 6.2 Thou/mm3 (3.6-11.0)
[2024-09-14 10:21] LABS: Alanine Aminotransferase 14 U/L (10-49); Albumin, Serum 4.1 gm/dL (3.5-5.0); Albumin/Globulin Ratio 1.7 (1.2-2.2); Alkaline Phosphatase 75 U/L (46-116); Anion Gap 9 (7-16); Aspartate Amino Transferase 21 U/L (0-34); BUN/Creatinine Ratio 14 Ratio (12-20); Bilirubin,Total 0.5 mg/dL (0.3-1.2); Blood Urea Nitrogen 11 mg/dL (9-23); Calcium 9.8 mg/dL (8.3-10.6); Calcium (Corrected) 9.8 mg/dL (8.5-10.1); Carbon Dioxide 29.9 mMol/L (20.0-31.0); Chloride 100 mMol/L (98-107); Creatinine (Component) 0.8 mg/dL (0.6-1.3); Globulin 2.4 gm/dL (2.3-3.5); Glucose 187 mg/dL (74-106); Osmolality,Calculated 281 (275-295); Potassium 3.8 mMol/L (3.4-5.1); Sodium 139 mMol/L (136-145); Total Protein 6.5 gm/dL (5.7-8.2); eGFR > 60 See Note
== END 2024-10-11 23:59 | disposition home or self-care (01) ==
LOC: SCTC 08:39
PROVIDERS: PCP Family Medicine; Referring Provider Family Medicine; Visit Provider Internal Medicine Hematology & Oncology
DX: Z51.11 Encounter for antineoplastic chemotherapy (principal); C50.112 Malignant neoplasm of central portion of left female breast; C78.02 Secondary malignant neoplasm of left lung; C78.01 Secondary malignant neoplasm of right lung; C78.7 Secondary malignant neoplasm of liver and intrahepatic bile duct; Z17.0 Estrogen receptor positive status [ER+]; Z17.21 Progesterone receptor positive status; Z17.32 Human epidermal growth factor receptor 2 negative status; Z79.811 Long term (current) use of aromatase inhibitors
CPT/HCPCS: 80053; 85025; 96367; 96413; A4216; J1642; J2997; J7050; Q5117

== ENCOUNTER 2024-10-25 08:43 | Outpatient (RCR) | payer BC, SELFPAY ==
[2024-10-25 10:09] LABS: Basophils # (Auto) 0.1 Thou/mm3 (0.0-0.2); Basophils % (Auto) 1 % (0-2.5); Eosinophils # (Auto) 0.2 Thou/mm3 (0.0-0.5); Eosinophils % (Auto) 4 % (0-10); Hematocrit 35.6 % (36.0-46.0); Hemoglobin 12.2 g/dL (12.0-16.0); Immature Granulocytes Auto 0.02 Thou/mm3 (0.00-0.00); Lymphocytes # (Auto) 1.5 Thou/mm3 (1.0-4.8); Lymphocytes % (Auto) 24 % (10-50); Mean Corpuscular HGB Conc 34.3 g/dl (31.0-37.0); Mean Corpuscular Hemoglobin 30.9 pg (25.0-35.0); Mean Corpuscular Volume 90 fL (80-100); Monocytes # (Auto) 0.6 Thou/mm3 (0.0-0.8); Monocytes % (Auto) 10 % (0-12); Neutrophils # (Auto) 3.9 Thou/mm3 (1.8-7.7); Neutrophils % (Auto) 62 % (37-80); Nucleated Red Blood Cell # 0.00 Thou/mm3 (0.00-0.00); Nucleated Red Blood Cell % 0 /100 WBC (0); Platelet Count 158 Thou/mm3 (140-440); RDW Standard Deviation 42.6 fL (36.4-46.3); Red Blood Count 3.95 Miln/mm3 (4.00-5.20); White Blood Count 6.3 Thou/mm3 (3.6-11.0)
[2024-10-25 10:34] LABS: Alanine Aminotransferase 30 U/L (10-49); Albumin, Serum 4.0 gm/dL (3.5-5.0); Albumin/Globulin Ratio 1.4 (1.2-2.2); Alkaline Phosphatase 109 U/L (46-116); Anion Gap 9 (7-16); Aspartate Amino Transferase 28 U/L (0-34); BUN/Creatinine Ratio 13 Ratio (12-20); Bilirubin,Total 0.3 mg/dL (0.3-1.2); Blood Urea Nitrogen 12 mg/dL (9-23); Calcium 8.9 mg/dL (8.3-10.6); Calcium (Corrected) 8.9 mg/dL (8.5-10.1); Carbon Dioxide 23.6 mMol/L (20.0-31.0); Chloride 106 mMol/L (98-107); Creatinine (Component) 0.9 mg/dL (0.6-1.3); Globulin 2.8 gm/dL (2.3-3.5); Glucose 263 mg/dL (74-106); Osmolality,Calculated 286 (275-295); Potassium 3.9 mMol/L (3.4-5.1); Sodium 139 mMol/L (136-145); Total Protein 6.8 gm/dL (5.7-8.2); eGFR > 60 See Note
--- NOTE | 2024-10-31 17:28 | CTCFLWUP_ITS ---
Patient: ANNA TINSLEY : 1965 Page 2 of 3 FOLLOW UP NOTE DATE OF SERVICE: 10/20/2024 NAME: ANNA TINSLEY ACCOUNT: [id number] : 1965 AGE: 59 INTERVAL HISTORY: Chief Complaint Follow-up after pneumonia, review of CT scan results History of Present Illness Laureano Castillo, a patient with a history of metastatic cancer, presents for follow-up. She reports no current shortness of breath or lung problems. The patient continues her daily walking routine without issues. She notes that she has not had cancer treatment since May. Anna mentions a slight weight gain of about 5 pounds, which she attributes to steroid use. She reports that her hair is growing back. The patient is currently taking anastrazole (an anti-endocrine therapy) and previously tolerated Herceptin without problems. She denies any side effects from her c urrent medications. The patient discusses her previous liver involvement, for which she was seen at [facility]. She was recommended to start HER-2 blocking treatment, which she agrees is important. Anna expresses a willingness to continue follow-up care with [facility] via telehealth. Medications and Supplements - Steroids - Caused weight gain of about 5 pounds - Nestrosol - Herceptin - No problems reported with previous use Review of Systems General: Negative for weight loss. Respiratory: Negative for shortness of breath. History of Present Illness Laureano Castillo, a patient with a history of metastatic cancer, presents for follow-up. She reports no current shortness of breath or lung problems. The patient continues her daily walking routine without issues. She notes that she has not had cancer treatment since May. Medications and Supplements - Steroids - Caused weight gain of about 5 pounds - Nestrosol - Herceptin - No problems reported with previous use Review of Systems General: Negative for weight loss. Respiratory: Negative for shortness of breath. History of Present Illness Laureano Castillo, a patient with a history of metastatic cancer, presents for follow-up. She reports no current shortness of breath or lung problems. The patient continues her daily walking routine without issues. She notes that she has not had cancer treatment since May. Medical History - Elevated blood sugar (230) while on prednisone Surgical History - Multiple surgeries in the left axilla Medications and Supplements - Steroids - Last dose taken yesterday - Increased blood sugar levels - Prednisone 60 mg - Increased blood sugar to 230 - Side effect: weight gain Family History - Mother: Living, age 81, described as very sharp still Social History - Living Situation: Lives in housing at the [facility], [facility]. Apartment costs $1200 per month, including utilities. - Family Structure: Has a mother who is 81 years old Review of Systems General: Negative for fever, chills, fatigue. Endocrine: Positive for elevated blood sugar. Physical Examination General: Patient appears to have gained approximately 5 pounds. Face looks good. Hair looks good and is growing. Laboratory, Imaging, and Diagnostic Test Results - CT scan (date not specified): - No interval pneumonia - Stable scarring compared to June 17, 2024 - Small calcified granulomas in the lungs - No current non-calcified nodules compared to CT scan 2023 - Remains regular thickening of the vulva later on - Previous CT scan results: - January 2024: First CT at this facility (details not provided) - June 17, 2024: Significant bilateral pneumonia reported ONCOLOGY HISTORY:?[facility] Hx? DIAGNOSIS: Malignant neoplasm of central portion of left female breast [ICD10] C50.112 DATE OF DIAGNOSIS: 09/30/2019 STAGE/TNM: Stage III initial ER/MI HER2 positive TREATMENT HISTORY: Care?Plan Start?Date Cycle Day Intent Fam?-?trastuzumab?deruxtecan 10/09/2023 1 21 Palliative Trastuzumab?6?mg/kg? 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 12/15/2014: Patient underwent left breast biopsy. Pathology showed invasive lobular carcinoma. She had palpable supraclavicular lymph node. The tumor was ER positive, MI positive as well as HER2/murtaza Positive (3+). Ms. Tinsley was treated with neoadjuvant chemotherapy including Herceptin. Ms. Tinsley had left mastectomy and sentinel lymph node biopsy. She had 4.6 cm residual tumor with 1 of 2 sentinel lymph nodes being positive. Ms. Tinsley had adjuvant radiation therapy and treated with tamoxifen following radiation therapy. August 2019: Patient felt a lump left chest wall. 09/30/2019: FNA with attempted local excision on 10/08/2019. Pathology showed 1.3 cm tumor, mixed invasive ductal and lobular carcinoma. Again the tumor was ER, MI as well as HER2/murtaaz positive inferior lateral and posterior margins were positive. 11/23/2019: Patient underwent wider resection including removal of the pectoralis major muscle followed by reconstruction with left latissimus dorsi flap.. Tamoxifen was discontinued and she was started on letrozole. 10/31/2022: Patient was found to have right supraclavicular lymphadenopathy. Biopsy showed metastatic breast cancer. She was also found to have involvement of the liver and the lungs patient was started on Faslodex. She had a second opinion at [facility]. Faslodex was discontinued after 2 doses. Patient was started on Trastuzumab Deruxtecan (Enhertu). 12/20/2022: Patient received first dose of Trastuzumab Deruxtecan (Enhertu) 02/28/2023: CT scan of the chest abdomen and pelvis with contrast which was compared to previous scans done on 11/01/2022 09/12/2023: Patient received last dose of Trastuzumab Deruxtecan (Enhertu). 05/16/2023: CT scan of the chest abdomen and pelvis with contrast was done which was compared to CT scans done on 02/28/2023. 05/16/2023: MRI of the abdomen with and without contrast was compared to previous PET/CT scan done on 11/06/[address] scans done on the same date 05/16/2023. 10/09/2023 Fam-trastuzumab deruxtecan-nxki ( Enhertu). PAST MEDICAL HISTORY: Bladder stone treated with lithotripsy in 2021 Laboratory, Imaging, and Diagnostic Test Results - Blood glucose: 230 mg/dL (date not specified) - Chest X-ray (08/03/2014): Extensive parenchymal disease in the right upper lobe and left base. Multiple surgeries in the left axilla. - CT scan (06/17/2024): Significant bilateral pneumonia, small calcified granuloma in the lungs, no calcified nodules, no interval metastatic disease. - CT scan (05/16/2023): Right upper lobe ground glass nodule measuring 4 mm (previously 5 mm), stable left apical scarring, stable nodular and linear density within the left lower lobe with nodular component measuring 9 mm. - CT scan (02/02/2024): 4 mm nodule in the right lobe, 15 mm nodule in the left lower lobe, 10 mm nodule in the left lower lobe. - CT scan (05/2019): Right upper lobe ground glass nodule measuring 5 mm. - Echocardiogram (05/10/2024): Normal. 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 anastrozole - 1 mg 1 tab Daily 2. multivitamin - 1 Capsule Daily?Palabra Meds? Medications Last Reconciled by Amelia Fox MA on 10/20/2024 ALLERGIES: No Known Drug Allergies; iv contrast REVIEW OF SYSTEMS: A complete 14-point review of systems was performed and is negative except as noted in interval history. PHYSICAL EXAMINATION:?[facility] PE? VITAL SIGNS: Temperature?97.9, B/P?121/81, Oxygen?Saturation?98% Weight?148?lbs PAIN: 0 - No pain GENERAL APPEARANCE: Appears well, in no apparent distress, appropriately interactive. HEENT: Normocephalic, no temporal wasting, normal conjunctiva, no scleral icterus, normal hearing, lips without lesions, neck normal range of motion. CARDIOVASCULAR: Not assessed. PULMONARY: Normal respiratory effort, no respiratory distress or use of accessory muscles, speaking in full sentences, no tachypnea. EXTREMITIES: No pedal edema or cyanosis. SKIN: Normal skin appearance. NEUROLOGIC: Alert and oriented x4. PSHYCHIATRIC: Appropriate affect, mood normal, behavior normal, intact thought and speech. LABORATORY DATA: I have personally reviewed and interpreted each of the patient?s relevant lab tests, abnormal findings are below: Date 09/14/24 10/25/24 ??WHITE?BLOOD?COUNT?(Thou/mm3) 6.2 6.3 ??RED?BLOOD?COUNT?(Miln/mm3) 4.02 3.95?L ??HEMOGLOBIN?(gm/dl) 12.6 12.2 ??HEMATOCRIT?(%) 37.2 35.6?L ??PLATELET?COUNT?(Thou/mm3) 181 158 ??NEUTROPHILS?%,?AUTO?(%) 61 62 ??LYMPH?%,?AUTO?(%) 23 24 ??NEUTROPHILS,?AUTO?(Thou/mm3) 3.8 3.9 ??GLUCOSE,RANDOM?(mg/dL) 187?H 263?H ??BLOOD?UREA?NITROGEN?(mg/dL) 11 12 ??CREATININE?(mg/dL) 0.80 0.90 ??SODIUM?(mmol/L) 139 139 ??POTASSIUM?(mmol/L) 3.8 3.9 ??CHLORIDE?(mmol/L) 100 106 ??CrCl?(CandG)?(ml/min) 79.38 62.59 ??AST/SGOT?(Unit/L) 21 28 ??ALT/SGPT?(Unit/L) 14 30 ??ALKALINE?PHOSPHATASE?(Unit/L) 75 109 ??BILIRUBIN,?TOTAL?(mg/dL) 0.5 0.3 ??PROTEIN?TOTAL?(gm/dl) 6.5 6.8 ??ALBUMIN,?SERUM?(gm/dl) 4.1 4.0 ??GLOBULIN?(gm/dl) 2.4 2.8 ??ALBUMIN/GLOBULIN?RATIO 1.7 1.4 ??CALCIUM,?SERUM?(mg/dL) 9.8 8.9 ??CALCIUM?SERUM?(CORRECTED)?(mg/dL) 9.8 8.9 ASSESSMENT/PLAN:?Sarah Ortega Assessment/Plan? Metastatic ER positive, MI positive, HER2/murtaza overexpressed 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 Patient was initially diagnosed in 2014. She was in menopause at that time. Patient received antiendocrine therapy and Herceptin in the adjuvant setting. She did have residual tumor after the neoadjuvant therapy but only Herceptin was offered and not TDM 1. I am not sure if TDM 1 was approved at that time. Patient then continued letrozole for few months before stopping it. At reoccurrence patient was initially started on Faslodex after she was not able to tolerated it was stopped. The patient is started back on Fam-trastuzumab deruxtecan-nxki ( Enhertu) here in [place] on 10/09/2023. Stopped after developing pneumonitis Previously patient was treated with tamoxifen as well as anastrozole. She also received 2 doses of Faslodex. BRCA 1 and 2 as well as [facility] cancer test did not show any abnormal genes Metastatic Cancer Assessment: Patient has a history of metastatic cancer, previously treated with Herceptin. Last treatment was in May. Recent CT scan shows no interval pneumonia compared to June 17, 2024. There are small calcified granulomas in the lungs, but no current non-calcified nodules compared to the [address]23 CT scan. Regular thickening of the vulva is noted. Patient is MI positive and HER2 over- expressed. Patient was on Enhertu X-ray chest done on June 14, 20162024 was concerning for pneumonitis. Patient was placed on steroids and repeat x-ray chest 08/03/2024 is still showing the same changes and patient remained asymptomatic Reviewed old CT scan from 02/28/2023 and from 2023 and patient's scans seems to have same scarring as recent x-ray chest Cont Herceptin Plan: - Await Naterra test results (expected in 2 weeks) - continue Herceptin - Continue anastrazole (anti-endocrine therapy) - Arrange telehealth follow-up with [facility] for second opinion - Consider referral to [place] if Qian-Yoni is not approved Resolved Bilateral Pneumonia Assessment: Patient had significant bilateral pneumonia noted on June 17, [address] scan shows no interval pneumonia, suggesting resolution. Patient reports no current problems with lungs or shortness of breath. Continues daily walking without issues. Clinician suspects the pneumonia has resolved, likely due to steroid treatment. Plan: - Monitor for any recurrence of respiratory symptoms.symptoms from enertu Weight Gain Assessment: Patient have gained few more pounds. She says feel hungry all the time . no steroids now Plan: - Continue to monitor weight and patient is trying to follow diet plan. She travelled a lot recently and was unable to control her food while travelling . shefeels comfortable with mild weight gain. Patient endorsed understanding RTC in 2 months ORDERS: Order # Description [id number] Comprehensive Metabolic Panel - 12 + CBC with Auto Diff + CA 15-3 [id number] Infusion 1 Hour RETURN TO CLINIC: I reviewed the diagnosis, prognosis, and recommended treatment/procedure options with the patient (and/or their legal account maintenance representative), including the potential benefits, risks, side effects and alternative therapies. We also discussed the option of no treatment and the possibility of clinical trial participation, if applicable. All questions were addressed, and they demonstrated understanding. They provided informed consent to proceed with the proposed plan of care. BILLING AND COMPLIANCE: I reviewed external records from providers outside my specialty as summarized above. I spent a total of 50 minutes on this patient?s care on the day of their visit excluding time spent related to any billed procedures. This time includes time spent with the patient as well as time spent documenting in the medical record, reviewing patients records and tests, obtaining history, placing orders, communicating with other healthcare professionals, counseling the patient, family or caregiver, and/or care coordination for the diagnoses above. Electronically Signed by: Cuauhtemoc Ortega MD T: 5:25 PM CC: PCP: Referring: Samia Ramírez This document was completed utilizing speech recognition software. Grammatical errors, random word insertions, pronoun errors, and incomplete sentences are an occasional consequence of this system due to software limitations, ambient noise, and hardware issues. Any formal questions or concerns about the content, text or information contained within the body of this dictation should be directly addressed to the provider for clarification.
== END 2024-11-11 23:59 | disposition home or self-care (01) ==
LOC: SCTC 08:43
PROVIDERS: PCP Family Medicine; Referring Provider Family Medicine; Visit Provider Internal Medicine Hematology & Oncology
DX: Z51.11 Encounter for antineoplastic chemotherapy (principal); C50.112 Malignant neoplasm of central portion of left female breast; Z17.0 Estrogen receptor positive status [ER+]; Z17.21 Progesterone receptor positive status; Z17.31 Human epidermal growth factor receptor 2 positive status; Z87.01 Personal history of pneumonia (recurrent); Z79.811 Long term (current) use of aromatase inhibitors; R91.8 Other nonspecific abnormal finding of lung field
CPT/HCPCS: 80053; 85025; 96413; 99212; A4216; J1642; J7040; J7050; Q5117; A9270; G0463

== ENCOUNTER → 2024-11-07 | Outpatient (CLI) | payer BC, SELFPAY ==
--- NOTE | 2024-11-07 13:00 | ECHO_ITS ---
Transthoracic Echo Report Ht (in): 62 Wt (lb): 148 Exam Location: Echo Lab Status: Preadmit Software Implementation Project Manager: Jacy García Indications: Procedure Performed: BP: / HR: Technical Quality: Technically difficult study MEASUREMENTS (Male / Female) Normal Values 2D ECHO LV Diastolic Diameter PLAX 4.4 cm 4.2 - 5.9 / 3.9 - 5.3 cm LV Systolic Diameter PLAX 2.6 cm IVS Diastolic Thickness 0.5 cm 0.6 - 1.0 / 0.6 - 0.9 cm LVPW Diastolic Thickness 0.9 cm 0.6 - 1.0 / 0.6 - 0.9 cm LV Relative Wall Thickness 0.3 LVOT Diameter 1.6 cm Aortic Root Diameter 2.8 cm LV Ejection Fraction MOD BP 54.0 % >= 55 % LV Ejection Fraction MOD 4C 54.1 % LV Ejection Fraction 4C AL 56.7 % LV Ejection Fraction MOD 2C 53.8 % LV Ejection Fraction 2C AL 53.6 % LA Volume Index 14.7 cm?/m? 16 - 28 cm?/m? M-MODE Aortic Root Diameter MM 2.4 cm LA Systolic Diameter MM 2.4 cm LA Ao Ratio MM 1.0 AV Cusp Separation MM 1.6 cm DOPPLER AV Peak Velocity 145.5 cm/s AV Peak Gradient 8.5 mmHg AV Mean Gradient 3.0 mmHg AV Velocity Time Integral 20.7 cm LVOT Peak Velocity 88.6 cm/s LVOT Peak Gradient 3.1 mmHg LVOT Velocity Time Integral 15.4 cm AV Area Cont Eq vti 1.5 cm? AV Area Cont Eq pk 1.2 cm? MV Area PHT 5.6 cm? Mitral E Point Velocity 56.8 cm/s Mitral A Point Velocity 71.3 cm/s Mitral E to A Ratio 0.8 LV E' Lateral Velocity 7.4 cm/s Mitral E to LV E' Lateral Ratio 7.7 LV E' Septal Velocity 6.1 cm/s Mitral E to LV E' Septal Ratio 9.3 TR Peak Velocity 247.0 cm/s TR Peak Gradient 24.4 mmHg PV Peak Velocity 111.0 cm/s PV Peak Gradient 4.9 mmHg FINDINGS Left Ventricle Normal left ventricular size, wall thickness, systolic function with no obvious regional wall motion abnormalities. The ejection fraction is visually estimated at 60-65 %. There is grade I diastolic dysfunction of the left ventricle (impaired relaxation pattern). Right Ventricle The right ventricle is normal in size and systolic function. Left Atrium The left atrium is normal by two-dimensional, color flow and Doppler imaging with no structural abnormalities, no thrombus formation present. Right Atrium The right atrium is normal by two-dimensional imaging, color flow and Doppler imaging with no structural abnormalities, no thrombus formation present. Atrial Septum The interatrial septum appears normal with no evidence of a shunt. Aorta The aorta is normal by two-dimensional, color flow and Doppler interrogation. Mitral Valve The mitral valve is normal by two-dimensional, color flow and Doppler interrogation. Trace mitral regurgitation. Aortic Valve The aortic valve is trileaflet and normal by two-dimensional, color flow and Doppler interrogation. There is no significant aortic valve regurgitation. Tricuspid Valve The tricuspid valve is normal by two-dimensional, color flow and Doppler interrogation. There is mild tricuspid valve regurgitation. Pulmonic Valve Trivial pulmonic valve regurgitation. Vessels The pulmonary artery appears normal. The inferior vena cava pulmonary and hepatic veins appear normal. Pericardium The pericardium is normal by two-dimensional imaging. There is no significant pericardial effusion. CONCLUSIONS Indication: Malignant neoplasm of cental portion of left female breast Normal LV size and function. Estimated EF at 60-65 %. There is grade I diastolic dysfunction. The RV is normal in size and systolic function. Trace MR. Mild TR. Trivial PI. Brennen Ireland (Electronically Signed) Final Date: 08 November 2024 09:08
== END | disposition home or self-care (01) ==
LOC: SDIM 11-11 07:27
PROVIDERS: PCP Family Medicine; Referring Provider Internal Medicine Hematology & Oncology; Visit Provider Internal Medicine Hematology & Oncology
DX: I50.31 Acute diastolic (congestive) heart failure (principal); I08.1 Rheumatic disorders of both mitral and tricuspid valves; C50.112 Malignant neoplasm of central portion of left female breast
CPT/HCPCS: 93306

== ENCOUNTER 2024-12-06 07:02 | Outpatient (RCR) | payer BC, SELFPAY ==
[2024-11-15 08:43] LABS: Basophils # (Auto) 0.1 Thou/mm3 (0.0-0.2); Basophils % (Auto) 2 % (0-2.5); Eosinophils # (Auto) 0.2 Thou/mm3 (0.0-0.5); Eosinophils % (Auto) 4 % (0-10); Hematocrit 36.0 % (36.0-46.0); Hemoglobin 12.0 g/dL (12.0-16.0); Immature Granulocytes Auto 0.02 Thou/mm3 (0.00-0.00); Lymphocytes # (Auto) 1.3 Thou/mm3 (1.0-4.8); Lymphocytes % (Auto) 26 % (10-50); Mean Corpuscular HGB Conc 33.3 g/dl (31.0-37.0); Mean Corpuscular Hemoglobin 30.7 pg (25.0-35.0); Mean Corpuscular Volume 92 fL (80-100); Monocytes # (Auto) 0.5 Thou/mm3 (0.0-0.8); Monocytes % (Auto) 11 % (0-12); Neutrophils # (Auto) 2.8 Thou/mm3 (1.8-7.7); Neutrophils % (Auto) 57 % (37-80); Nucleated Red Blood Cell # 0.00 Thou/mm3 (0.00-0.00); Nucleated Red Blood Cell % 0 /100 WBC (0); Platelet Count 188 Thou/mm3 (140-440); RDW Standard Deviation 43.3 fL (36.4-46.3); Red Blood Count 3.91 Miln/mm3 (4.00-5.20); White Blood Count 4.9 Thou/mm3 (3.6-11.0)
[2024-11-15 09:00] LABS: Alanine Aminotransferase 26 U/L (10-49); Albumin, Serum 4.3 gm/dL (3.5-5.0); Albumin/Globulin Ratio 1.5 (1.2-2.2); Alkaline Phosphatase 70 U/L (46-116); Anion Gap 9 (7-16); Aspartate Amino Transferase 29 U/L (0-34); BUN/Creatinine Ratio 18 Ratio (12-20); Bilirubin,Total 0.5 mg/dL (0.3-1.2); Blood Urea Nitrogen 14 mg/dL (9-23); Calcium 9.6 mg/dL (8.3-10.6); Calcium (Corrected) 9.6 mg/dL (8.5-10.1); Carbon Dioxide 27.0 mMol/L (20.0-31.0); Chloride 107 mMol/L (98-107); Creatinine (Component) 0.8 mg/dL (0.6-1.3); Globulin 2.9 gm/dL (2.3-3.5); Glucose 112 mg/dL (74-106); Osmolality,Calculated 286 (275-295); Potassium 3.8 mMol/L (3.4-5.1); Sodium 143 mMol/L (136-145); Total Protein 7.2 gm/dL (5.7-8.2); eGFR > 60 See Note
[2024-12-06 08:13] LABS: Basophils # (Auto) 0.1 Thou/mm3 (0.0-0.2); Basophils % (Auto) 1 % (0-2.5); Eosinophils # (Auto) 0.2 Thou/mm3 (0.0-0.5); Eosinophils % (Auto) 3 % (0-10); Hematocrit 36.6 % (36.0-46.0); Hemoglobin 12.3 g/dL (12.0-16.0); Immature Granulocytes Auto 0.02 Thou/mm3 (0.00-0.00); Lymphocytes # (Auto) 2.0 Thou/mm3 (1.0-4.8); Lymphocytes % (Auto) 36 % (10-50); Mean Corpuscular HGB Conc 33.6 g/dl (31.0-37.0); Mean Corpuscular Hemoglobin 30.8 pg (25.0-35.0); Mean Corpuscular Volume 92 fL (80-100); Monocytes # (Auto) 0.6 Thou/mm3 (0.0-0.8); Monocytes % (Auto) 11 % (0-12); Neutrophils # (Auto) 2.7 Thou/mm3 (1.8-7.7); Neutrophils % (Auto) 49 % (37-80); Nucleated Red Blood Cell # 0.00 Thou/mm3 (0.00-0.00); Nucleated Red Blood Cell % 0 /100 WBC (0); Platelet Count 192 Thou/mm3 (140-440); RDW Standard Deviation 42.8 fL (36.4-46.3); Red Blood Count 4.00 Miln/mm3 (4.00-5.20); White Blood Count 5.5 Thou/mm3 (3.6-11.0)
[2024-12-06 08:15] LABS: Alanine Aminotransferase 26 U/L (10-49); Albumin, Serum 4.0 gm/dL (3.5-5.0); Albumin/Globulin Ratio 1.5 (1.2-2.2); Alkaline Phosphatase 83 U/L (46-116); Anion Gap 10 (7-16); Aspartate Amino Transferase 25 U/L (0-34); BUN/Creatinine Ratio 18 Ratio (12-20); Bilirubin,Total 0.4 mg/dL (0.3-1.2); Blood Urea Nitrogen 16 mg/dL (9-23); Calcium 9.8 mg/dL (8.3-10.6); Calcium (Corrected) 9.8 mg/dL (8.5-10.1); Carbon Dioxide 28.0 mMol/L (20.0-31.0); Chloride 103 mMol/L (98-107); Creatinine (Component) 0.9 mg/dL (0.6-1.3); Globulin 2.7 gm/dL (2.3-3.5); Glucose 220 mg/dL (74-106); Osmolality,Calculated 289 (275-295); Potassium 3.6 mMol/L (3.4-5.1); Sodium 141 mMol/L (136-145); Total Protein 6.7 gm/dL (5.7-8.2); eGFR > 60 See Note
== END 2024-12-12 23:59 | disposition home or self-care (01) ==
LOC: SCTC 07:02
PROVIDERS: PCP Family Medicine; Referring Provider Family Medicine; Visit Provider Internal Medicine Hematology & Oncology
DX: Z51.11 Encounter for antineoplastic chemotherapy (principal); C50.112 Malignant neoplasm of central portion of left female breast; C78.00 Secondary malignant neoplasm of unspecified lung; C78.7 Secondary malignant neoplasm of liver and intrahepatic bile duct; Z17.0 Estrogen receptor positive status [ER+]; Z17.21 Progesterone receptor positive status; Z17.32 Human epidermal growth factor receptor 2 negative status; Z87.01 Personal history of pneumonia (recurrent); Z79.811 Long term (current) use of aromatase inhibitors; R63.5 Abnormal weight gain; Z68.27 Body mass index [BMI] 27.0-27.9, adult
CPT/HCPCS: 80053; 85025; 96366; 96367; 96413; A4216; J1642; J2997; J7040; J7050; J9358; Q5117; A9270

== ENCOUNTER 2024-12-27 07:36 | Outpatient (RCR) | payer BC, SELFPAY ==
--- NOTE | 2024-12-22 13:17 | CTCFLWUP_ITS ---
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 Previously patient was treated with tamoxifen as well as anastrozole. She also received 2 doses of Faslodex.n Fam-trastuzumab deruxtecan-nxki ( Enhertu) which caused pneumonitis and was stopped and patient's restarted on Herceptin in September 2024 TREATMENT HISTORY: Care?Plan Start?Date Cycle Day Intent Fam?-?trastuzumab?deruxtecan 10/09/2023 1 21 Palliative Trastuzumab?6?mg/kg? 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 12/15/2014: Patient underwent left breast biopsy. Pathology showed invasive lobular carcinoma. She had palpable supraclavicular lymph node. The tumor was ER positive, MN positive as well as HER2/murtaza Positive (3+). Ms. Tinsley was treated with neoadjuvant chemotherapy including Herceptin. Ms. Tinsley had left mastectomy and sentinel lymph node biopsy. She had 4.6 cm residual tumor with 1 of 2 sentinel lymph nodes being positive. Ms. Tinsley had adjuvant radiation therapy and treated with tamoxifen following radiation therapy. August 2019: Patient felt a lump left chest wall. 09/30/2019: FNA with attempted local excision on 10/08/2019. Pathology showed 1.3 cm tumor, mixed invasive ductal and lobular carcinoma. Again the tumor was ER, MN as well as HER2/murtaza positive inferior lateral and posterior margins were positive. 11/23/2019: Patient underwent wider resection including removal of the pectoralis major muscle followed by reconstruction with left latissimus dorsi flap.. Tamoxifen was discontinued and she was started on letrozole. 10/31/2022: Patient was found to have right supraclavicular lymphadenopathy. Biopsy showed metastatic breast cancer. She was also found to have involvement of the liver and the lungs patient was started on Faslodex. She had a second opinion at [facility]. Faslodex was discontinued after 2 doses. Patient was started on Trastuzumab Deruxtecan (Enhertu). 12/20/2022: Patient received first dose of Trastuzumab Deruxtecan (Enhertu) /05/2023: CT scan of the chest abdomen and pelvis with contrast was done which was compared to CT scans done on 02/28/2023.10/09/2023 Fam-trastuzumab deruxtecan-nxki ( Enhertu). September 2024 patient developed pneumonitis bilateral lungs. 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 anastrozole - 1 mg 1 tab Daily 2. multivitamin - 1 Capsule Daily Medications Last Reconciled by Amelia Ramírez MD on 12/20/2024 ALLERGIES: No Known Drug Allergies; iv contrast REVIEW OF SYSTEMS: A complete 14-point review of systems was performed and is negative except as noted in interval history. PHYSICAL EXAMINATION: VITAL SIGNS: Temperature?97.9, B/P?150/101, Oxygen?Saturation?95% Weight?147?lbs (Change?since?12/06/24:?-4.2?lbs) PAIN: 0 - No pain ECOG Performance Status: 0 - Asymptomatic and fully active GENERAL APPEARANCE: Appears well, in no apparent distress, appropriately interactive. HEENT: Normocephalic, no temporal wasting, normal conjunctiva, no scleral icterus, normal hearing, lips without lesions, neck normal range of motion. CARDIOVASCULAR: Not assessed. PULMONARY: Normal respiratory effort, no respiratory distress or use of accessory muscles, speaking in full sentences, no tachypnea. EXTREMITIES: No pedal edema or cyanosis. SKIN: Normal skin appearance. NEUROLOGIC: Alert and oriented x4. PSHYCHIATRIC: Appropriate affect, mood normal, behavior normal, intact thought and speech. LABORATORY DATA: I have personally reviewed and interpreted each of the patient?s relevant lab tests, abnormal findings are below: Date 11/15/24 12/06/24 ??WHITE?BLOOD?COUNT?(Thou/mm3) 4.9 5.5 ??RED?BLOOD?COUNT?(Miln/mm3) 3.91?L 4.00 ??HEMOGLOBIN?(gm/dl) 12.0 12.3 ??HEMATOCRIT?(%) 36.0 36.6 ??PLATELET?COUNT?(Thou/mm3) 188 192 ??NEUTROPHILS?%,?AUTO?(%) 57 49 ??LYMPH?%,?AUTO?(%) 26 36 ??NEUTROPHILS,?AUTO?(Thou/mm3) 2.8 2.7 ??GLUCOSE,RANDOM?(mg/dL) 112?H 220?H ??BLOOD?UREA?NITROGEN?(mg/dL) 14 16 ??CREATININE?(mg/dL) 0.80 0.90 ??SODIUM?(mmol/L) 143 141 ??POTASSIUM?(mmol/L) 3.8 3.6 ??CHLORIDE?(mmol/L) 107 103 ??CrCl?(CandG)?(ml/min) 80.57 62.55 ??AST/SGOT?(Unit/L) 29 25 ??ALT/SGPT?(Unit/L) 26 26 ??ALKALINE?PHOSPHATASE?(Unit/L) 70 83 ??BILIRUBIN,?TOTAL?(mg/dL) 0.5 0.4 ??PROTEIN?TOTAL?(gm/dl) 7.2 6.7 ??ALBUMIN,?SERUM?(gm/dl) 4.3 4.0 ??GLOBULIN?(gm/dl) 2.9 2.7 ??ALBUMIN/GLOBULIN?RATIO 1.5 1.5 ??CALCIUM,?SERUM?(mg/dL) 9.6 9.8 ??CALCIUM?SERUM?(CORRECTED)?(mg/dL) 9.6 9.8 ASSESSMENT/PLAN: Metastatic ER positive, MN positive, HER2/murtaza overexpressed 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 Patient was initially diagnosed in 2014. She was in menopause at that time. Patient received antiendocrine therapy and Herceptin in the adjuvant setting. She did have residual tumor after the neoadjuvant therapy but only Herceptin was offered and not TDM 1. I am not sure if TDM 1 was approved at that time. Patient then continued letrozole for few months before stopping it. At reoccurrence patient was initially started on Faslodex after she was not able to tolerated it was stopped. The patient is started back on Fam-trastuzumab deruxtecan-nxki ( Enhertu) here in [place] on 10/09/2023 and stopped in September 2024 after she developed pneumonitis She is not taking Herceptin Arimidex 1 mg tablet daily Patient have known side effects Will get staging scans Referral placed to [place] for oncology for second opinion and further management as per patient's request ORDERS: Order # Description [id number] Comprehensive Metabolic Panel - 12 + CBC with Auto Diff + CA 15-[id number] Scan + Chest + Abdomen and Pelvis + With W/O Contrast [id number] MRI + Brain + With W/O Contrast [id number] CBC + Comprehensive Metabolic Panel [id number] Lab Appointment RETURN TO CLINIC: I reviewed the diagnosis, prognosis, and recommended treatment/procedure options with the patient (and/or their legal leasing representative), including the potential benefits, risks, side effects and alternative therapies. We also discussed the option of no treatment and the possibility of clinical trial participation, if applicable. All questions were addressed, and they demonstrated understanding. They provided informed consent to proceed with the proposed plan of care. BILLING AND COMPLIANCE: I reviewed external records from providers outside my specialty as summarized above. I spent a total of 50 minutes on this patient?s care on the day of their visit excluding time spent related to any billed procedures. This time includes time spent with the patient as well as time spent documenting in the medical record, reviewing patients records and tests, obtaining history, placing orders, communicating with other healthcare professionals, counseling the patient, family or caregiver, and/or care coordination for the diagnoses above. Electronically Signed by: Cuauhtemoc Ortega MD T: 1:14 PM CC: PCP: Referring: Samia Ramírez This document was completed utilizing speech recognition software. Grammatical errors, random word insertions, pronoun errors, and incomplete sentences are an occasional consequence of this system due to software limitations, ambient noise, and hardware issues. Any formal questions or concerns about the content, text or information contained within the body of this dictation should be directly addressed to the provider for clarification.
[2024-12-27 08:42] LABS: Basophils # (Auto) 0.1 Thou/mm3 (0.0-0.2); Basophils % (Auto) 1 % (0-2.5); Eosinophils # (Auto) 0.2 Thou/mm3 (0.0-0.5); Eosinophils % (Auto) 4 % (0-10); Hematocrit 37.9 % (36.0-46.0); Hemoglobin 12.6 g/dL (12.0-16.0); Immature Granulocytes Auto 0.02 Thou/mm3 (0.00-0.00); Lymphocytes # (Auto) 1.9 Thou/mm3 (1.0-4.8); Lymphocytes % (Auto) 30 % (10-50); Mean Corpuscular HGB Conc 33.2 g/dl (31.0-37.0); Mean Corpuscular Hemoglobin 30.2 pg (25.0-35.0); Mean Corpuscular Volume 91 fL (80-100); Monocytes # (Auto) 0.6 Thou/mm3 (0.0-0.8); Monocytes % (Auto) 11 % (0-12); Neutrophils # (Auto) 3.3 Thou/mm3 (1.8-7.7); Neutrophils % (Auto) 54 % (37-80); Nucleated Red Blood Cell # 0.00 Thou/mm3 (0.00-0.00); Nucleated Red Blood Cell % 0 /100 WBC (0); Platelet Count 205 Thou/mm3 (140-440); RDW Standard Deviation 42.2 fL (36.4-46.3); Red Blood Count 4.17 Miln/mm3 (4.00-5.20); White Blood Count 6.1 Thou/mm3 (3.6-11.0)
[2024-12-27 09:12] LABS: Alanine Aminotransferase 28 U/L (10-49); Albumin, Serum 4.2 gm/dL (3.5-5.0); Albumin/Globulin Ratio 1.5 (1.2-2.2); Alkaline Phosphatase 74 U/L (46-116); Anion Gap 10 (7-16); Aspartate Amino Transferase 29 U/L (0-34); BUN/Creatinine Ratio 14 Ratio (12-20); Bilirubin,Total 0.5 mg/dL (0.3-1.2); Blood Urea Nitrogen 11 mg/dL (9-23); Calcium 9.6 mg/dL (8.3-10.6); Calcium (Corrected) 9.6 mg/dL (8.5-10.1); Carbon Dioxide 28.9 mMol/L (20.0-31.0); Chloride 104 mMol/L (98-107); Creatinine (Component) 0.8 mg/dL (0.6-1.3); Globulin 2.8 gm/dL (2.3-3.5); Glucose 122 mg/dL (74-106); Osmolality,Calculated 285 (275-295); Potassium 3.8 mMol/L (3.4-5.1); Sodium 143 mMol/L (136-145); Total Protein 7.0 gm/dL (5.7-8.2); eGFR > 60 See Note
== END 2025-01-11 23:59 | disposition home or self-care (01) ==
LOC: SCTC 07:36
PROVIDERS: PCP Family Medicine; Referring Provider Family Medicine; Visit Provider Internal Medicine Hematology & Oncology
DX: Z51.11 Encounter for antineoplastic chemotherapy (principal); C50.112 Malignant neoplasm of central portion of left female breast; C78.7 Secondary malignant neoplasm of liver and intrahepatic bile duct; C78.02 Secondary malignant neoplasm of left lung; C78.01 Secondary malignant neoplasm of right lung; Z17.0 Estrogen receptor positive status [ER+]; Z17.21 Progesterone receptor positive status; Z17.31 Human epidermal growth factor receptor 2 positive status; Z90.12 Acquired absence of left breast and nipple; Z79.811 Long term (current) use of aromatase inhibitors
CPT/HCPCS: 80053; 85025; 96413; 99212; A4216; J1642; J7040; J7050; Q5117; A9270; G0463

== ENCOUNTER 2025-02-07 08:11 | Outpatient (RCR) | payer BC, SELFPAY ==
[2025-01-17 08:56] LABS: Basophils # (Auto) 0.1 Thou/mm3 (0.0-0.2); Basophils % (Auto) 1 % (0-2.5); Eosinophils # (Auto) 0.2 Thou/mm3 (0.0-0.5); Eosinophils % (Auto) 3 % (0-10); Hematocrit 36.2 % (36.0-46.0); Hemoglobin 12.1 g/dL (12.0-16.0); Immature Granulocytes Auto 0.02 Thou/mm3 (0.00-0.00); Lymphocytes # (Auto) 1.8 Thou/mm3 (1.0-4.8); Lymphocytes % (Auto) 33 % (10-50); Mean Corpuscular HGB Conc 33.4 g/dl (31.0-37.0); Mean Corpuscular Hemoglobin 30.0 pg (25.0-35.0); Mean Corpuscular Volume 90 fL (80-100); Monocytes # (Auto) 0.5 Thou/mm3 (0.0-0.8); Monocytes % (Auto) 10 % (0-12); Neutrophils # (Auto) 2.9 Thou/mm3 (1.8-7.7); Neutrophils % (Auto) 53 % (37-80); Nucleated Red Blood Cell # 0.00 Thou/mm3 (0.00-0.00); Nucleated Red Blood Cell % 0 /100 WBC (0); Platelet Count 192 Thou/mm3 (140-440); RDW Standard Deviation 41.1 fL (36.4-46.3); Red Blood Count 4.03 Miln/mm3 (4.00-5.20); White Blood Count 5.4 Thou/mm3 (3.6-11.0)
[2025-01-17 09:10] LABS: Alanine Aminotransferase 29 U/L (10-49); Albumin, Serum 4.4 gm/dL (3.4-4.8); Albumin/Globulin Ratio 1.6 (1.2-2.2); Alkaline Phosphatase 76 U/L (46-116); Anion Gap 10 (7-16); Aspartate Amino Transferase 14 U/L (0-34); BUN/Creatinine Ratio 21 Ratio (12-20); Bilirubin,Total 0.3 mg/dL (0.3-1.2); Blood Urea Nitrogen 17 mg/dL (9-23); Calcium 9.6 mg/dL (8.3-10.6); Calcium (Corrected) 9.6 mg/dL (8.5-10.1); Carbon Dioxide 28.4 mMol/L (20.0-31.0); Chloride 104 mMol/L (98-107); Creatinine (Component) 0.8 mg/dL (0.6-1.3); Globulin 2.8 gm/dL (2.3-3.5); Glucose 117 mg/dL (74-106); Osmolality,Calculated 285 (275-295); Potassium 3.9 mMol/L (3.4-5.1); Sodium 142 mMol/L (136-145); Total Protein 7.2 gm/dL (5.7-8.2); eGFR > 60 See Note
[2025-02-07 09:08] LABS: Basophils # (Auto) 0.1 Thou/mm3 (0.0-0.2); Basophils % (Auto) 1 % (0-2.5); Eosinophils # (Auto) 0.2 Thou/mm3 (0.0-0.5); Eosinophils % (Auto) 3 % (0-10); Hematocrit 38.0 % (36.0-46.0); Hemoglobin 12.6 g/dL (12.0-16.0); Immature Granulocytes Auto 0.01 Thou/mm3 (0.00-0.00); Lymphocytes # (Auto) 1.6 Thou/mm3 (1.0-4.8); Lymphocytes % (Auto) 28 % (10-50); Mean Corpuscular HGB Conc 33.2 g/dl (31.0-37.0); Mean Corpuscular Hemoglobin 30.5 pg (25.0-35.0); Mean Corpuscular Volume 92 fL (80-100); Monocytes # (Auto) 0.5 Thou/mm3 (0.0-0.8); Monocytes % (Auto) 9 % (0-12); Neutrophils # (Auto) 3.5 Thou/mm3 (1.8-7.7); Neutrophils % (Auto) 59 % (37-80); Nucleated Red Blood Cell # 0.00 Thou/mm3 (0.00-0.00); Nucleated Red Blood Cell % 0 /100 WBC (0); Platelet Count 177 Thou/mm3 (140-440); RDW Standard Deviation 42.8 fL (36.4-46.3); Red Blood Count 4.13 Miln/mm3 (4.00-5.20); White Blood Count 5.9 Thou/mm3 (3.6-11.0)
[2025-02-07 09:24] LABS: Alanine Aminotransferase 23 U/L (10-49); Albumin, Serum 4.2 gm/dL (3.4-4.8); Albumin/Globulin Ratio 1.4 (1.2-2.2); Alkaline Phosphatase 84 U/L (46-116); Anion Gap 10 (7-16); Aspartate Amino Transferase 27 U/L (0-34); BUN/Creatinine Ratio 20 Ratio (12-20); Bilirubin,Total 0.5 mg/dL (0.3-1.2); Blood Urea Nitrogen 16 mg/dL (9-23); Calcium 9.6 mg/dL (8.3-10.6); Calcium (Corrected) 9.6 mg/dL (8.5-10.1); Carbon Dioxide 27.9 mMol/L (20.0-31.0); Chloride 104 mMol/L (98-107); Creatinine (Component) 0.8 mg/dL (0.6-1.3); Globulin 3.0 gm/dL (2.3-3.5); Glucose 172 mg/dL (74-106); Osmolality,Calculated 288 (275-295); Potassium 3.7 mMol/L (3.4-5.1); Sodium 142 mMol/L (136-145); Total Protein 7.2 gm/dL (5.7-8.2); eGFR > 60 See Note
== END 2025-02-11 23:59 | disposition home or self-care (01) ==
LOC: SCTC 08:11
PROVIDERS: PCP Family Medicine; Referring Provider Family Medicine; Visit Provider Internal Medicine Hematology & Oncology
DX: Z51.11 Encounter for antineoplastic chemotherapy (principal); C50.112 Malignant neoplasm of central portion of left female breast; C78.7 Secondary malignant neoplasm of liver and intrahepatic bile duct; C78.02 Secondary malignant neoplasm of left lung; C78.01 Secondary malignant neoplasm of right lung; Z17.0 Estrogen receptor positive status [ER+]; Z17.21 Progesterone receptor positive status; Z17.31 Human epidermal growth factor receptor 2 positive status; Z90.12 Acquired absence of left breast and nipple; Z79.811 Long term (current) use of aromatase inhibitors
CPT/HCPCS: 80053; 85025; 96413; A4216; J1642; J7040; J7050; Q5117; A9270

== ENCOUNTER → 2025-02-16 | Outpatient (CLI) | payer BC, SELFPAY ==
--- NOTE | 2025-02-16 10:30 | ECHO_ITS ---
Patient Info Name: Anna Tinsley Age: 60 years : 1965 Gender: Female Ht: 157 cm Wt: 68 kg BSA: 1.74 m2 BP: 173 / 101 mmHg HR: 94 bpm Exam Date: 02/16/2025 10:58 AM Admit Date: 02/16/2025 Site: [facility] Room Number: Echo room Patient Status: O Technical Quality: Good Exam Type: CA echo doppler complete Hearing Healthcare Practitioner: Sherron Herron Ordering Physician: Cuauhtemoc Ortega Referring Physician: Cuauhtemoc Ortega Study Info Indications MALIGNANT NEOPLASM OF CENTRAL PORTION OF LEFT FEMALE BREAST - Primary Location: SDIM Left Ventricular Outflow Tract Name Value Normal LVOT 2D LVOT Diameter 1.9 cm LVOT Doppler LVOT Peak Velocity 78 cm/s LVOT Mean Gradient 1 mmHg LVOT VTI 17 cm LVOT VTI/AV VTI Ratio 0.6 LVOT Stroke Volume 47 ml Pulmonic Valve Name Value Normal PV Doppler PV Peak Velocity 88 cm/s Mitral Valve Name Value Normal MV Annular TDI MV Lateral e' Velocity 5.6 cm/s Tricuspid Valve Name Value Normal TV Regurgitation Doppler TR Peak Velocity 291 cm/s Estimated PAP/RSVP RA Pressure 3 mmHg <=5 PA Systolic Pressure 37 mmHg <36 RV Systolic Pressure 37 mmHg <36 Aortic Valve Name Value Normal AV 2D/MM AV Cusp Sep (MM) 1.2 cm AV Doppler AV Peak Velocity 139 cm/s AV Mean Gradient 4 mmHg AV VTI 26 cm AV Area (Cont Eq VTI) 1.8 cm2 >=3.0 AV Area (Cont Eq Perry) 1.6 cm2 AV DI (Perry) 0.56 AV Regurgitation 2D LVOT Area 2.8 cm2 Ventricles Name Value Normal LV Dimensions 2D/MM IVS Diastolic Thickness (2D) 0.8 cm 0.6-0.9 LVID Diastole (2D) 3.3 cm 3.8-5.2 LVIW Diastolic Thickness (2D) 1.0 cm 0.6-0.9 LVID Systole (2D) 2.2 cm 2.2-3.5 LVOT Diameter 1.9 cm LV Mass (2D Cubed) 81.07 g 67.00-162.00 LV Mass Index (2D Cubed) 46 g/m2 43-95 Relative Wall Thickness (2D) 0.61 <=0.42 IVS/LVIW Diastolic Thickness (2D) 0.80 0.00-1.50 LV Fractional Shortening/Ejection Fraction 2D/MM LV Fractional Shortening (2D) 33 % 27-45 LV EF (2D Teichholz) 63 % Atria Name Value Normal LA Dimensions LA Volume (4C A-L) 32 ml LA Volume (BP A-L) 32 ml Left Ventricle Left ventricular chamber dimension is normal. Left ventricular systolic function is normal with visually estimated ejection fraction of 60-65%. There is concentric remodeling noted in the left ventricle. Left ventricular segmental wall motion is normal. There is grade I diastolic dysfunction in the left ventricle. Right Ventricle Right ventricular chamber dimension is normal. Right ventricular systolic function is normal. Left Atrium Left atrial chamber dimension is normal. Right Atrium Right atrial chamber dimension is normal. Aortic Valve The aortic valve is trileaflet. There is no aortic valve sclerosis. There is no aortic valve stenosis with a peak velocity of 139 cm/s, mean gradient of 4 mmHg, and aortic valve area of 1.8 cm2. There is no aortic valve regurgitation. Pulmonic Valve The pulmonic valve is normal. There is no pulmonic valve stenosis. There is trace pulmonic regurgitation. Mitral Valve The mitral valve has normal leaflets. There is no mitral valve stenosis. There is mild mitral valve regurgitation. Tricuspid Valve The tricuspid valve leaflets are normal. There is no tricuspid valve stenosis. There is mild tricuspid valve regurgitation. Pulmonary hypertension, estimated pulmonary arterial systolic pressure is 37 mmHg and systemic blood pressure of 173 mmHg in systole. Pericardium/Pleural The pericardium appears normal. There is no pericardial effusion. No pleural effusion visualized. Inferior Vena Cava Normal inferior vena cava with >50% collapse upon inspiration consistent with normal right atrial pressure, 3 mmHg. Aorta The aortic measurements are indexed to age and body surface area. The aortic root at the sinus of Valsalva is not well visualized. The prox ascending aorta is not well visualized. Summary 1. Left ventricle size is normal and systolic function is normal. Estimated ejection fraction is 60-65%. There is grade I diastolic dysfunction. 2. Right ventricle chamber size is normal and systolic function is normal. Estimated RVSP is 37 mmHg. 3. There is mild mitral valve regurgitation. 4. There is mild tricuspid valve regurgitation. Trace PI. Report Signatures Finalized by Arron Reilly on 02/16/2025 12:50 PM
== END | disposition home or self-care (01) ==
PROVIDERS: PCP Family Medicine; Referring Provider Internal Medicine Hematology & Oncology; Visit Provider Internal Medicine Hematology & Oncology
DX: I50.30 Unspecified diastolic (congestive) heart failure (principal); I08.1 Rheumatic disorders of both mitral and tricuspid valves; C50.112 Malignant neoplasm of central portion of left female breast
CPT/HCPCS: 93306

== ENCOUNTER → 2025-02-18 | Outpatient (CLI) | payer BC, SELFPAY ==
--- NOTE | 2025-02-18 08:00 | XR_ITS ---
Examination: CT chest with intravenous contrast CT abdomen with intravenous contrast CT pelvis with intravenous contrast CT chest without intravenous contrast CT abdomen without intravenous contrast CT pelvis without intravenous contrast 2-D coronal and sagittal reconstructions Time of exam: February 18, 2025, 0806 hours, comparison CT chest August 25, 2024, CT chest abdomen pelvis June 17, 2024, CT chest February 02, 2024 6 INDICATIONS: Malignant neoplasm of left female breast, restaging CTDI: vol (mGy) : 24 DLP: (mGycm): 1007 Technique: Multiple axial images of the chest, abdomen and pelvis with intravenous contrast, 3.0 mm slice thickness. Images obtained pre-post intravenous injection Isovue 370 60 cc. 2-D sagittal and coronal reconstructions. Low dose protocols were performed. One or more of the following dose reduction techniques were used; automated exposure control, adjustment of the mA and/or KV according to patient size, use of iterative reconstruction technique. Findings: No thoracic aortic aneurysmal dilatation No pulmonary artery emboli on this 9 CTA study No interval paratracheal tracheobronchial or bronchopulmonary adenopathy Tiny granulomas in the right lung. Stable scarring in both lungs compared with August 25, 2024 No interval noncalcified pulmonary nodules Left mastectomy, no interval breast chest wall or axillary lymphadenopathy No interval liver or splenic solid lesions Small retrocardiac gastric hernia Tiny gallstone No pancreatic mass Normal adrenal glands Atrophic left kidney with compensatory hypertrophy right kidney Aortic calcification no aneurysmal dilatation No interval abdominal or pelvic lymphadenopathy Normal appendix No bowel obstruction or diverticulitis Atrophic uterus There remains abnormal irregular thickening of the urinary bladder wall stable since June 17, 2024 Moderate osteopenia IMPRESSION: No interval metastatic disease in the chest abdomen or pelvis
== END | disposition home or self-care (01) ==
LOC: SCAT 07:45
PROVIDERS: PCP Family Medicine; Referring Provider Internal Medicine Hematology & Oncology; Visit Provider Internal Medicine Hematology & Oncology
DX: C50.112 Malignant neoplasm of central portion of left female breast (principal)
CPT/HCPCS: 71270; 74178; A4649; Q9967

== ENCOUNTER → 2025-02-25 | Outpatient (CLI) | payer BC, SELFPAY ==
--- NOTE | 2025-02-25 09:00 | XR_ITS ---
Examination: MRI of brain without intravenous contrast. MRI brain with intravenous contrast. Date and time of exam: February 25, 2025, 0955 hours, comparison September 01, 2024 INDICATIONS: Diagnosis malignant neoplasm of central portion of left female breast, restaging, breast carcinoma diagnosis 2014 Technique: Multiple axial and sagittal images of the brain to been obtained. Siemens high-resolution 1.52 Anastasia short bore scanner utilized. Sagittal sections, T1 weighted images, TR 500, TE 14, are performed. Axial sections proton-density and T2-weighted images have been obtained. Inversion recovery axial images, TR 9260, TE 111, TR 2500. Diffusion weighted images, axial sections, TR 4800, TE 128, B value 1000. Axial sections, ADC map, TR 4800, TE 128. Axial and coronal images were also obtained post 13 cc gadolinium administered intravenously. Findings:: Enlargement of the sella turcica is not present. The optic chiasm and infundibular stalk are not remarkable. There is no localized enlargement of the medulla or aubrey. Fourth ventricle and cerebellar tonsils appear normal in position. No subacute area of hemorrhage density is seen. Fourth ventricle is midline. Mass in the cerebellopontine angle region is not evident. 7th and 8th nerve complexes exhibit symmetry Globes are symmetrical Orbital musculature including medial lateral rectus muscles do not exhibit abnormality Increased white matter signal is moderate Effacement of the cortical sulcal markings is not identified. Mass effect upon the ventricular system is not identified. Diffusion-weighted images demonstrate no focus of restricted diffusion Contrast images demonstrate no abnormal enhancement Impression: Negative for acute hemorrhage mass effect or midline shift No acute infarct No abnormal enhancing cerebellar or cerebral lesions
[2025-02-25] MEDS: HYDROCORTISONE SOD SUCC INJ 100 MG 2 ML VIAL IV (09:51)
--- NOTE | 2025-02-25 10:04 | PC.NURSE ---
Monitoring patient while recving contrast during MRI
[2025-02-25 10:39] VITALS: BP 154/126; PULSE 100; RESP 21; TEMP 36.2; O2SAT 100
[2025-02-25 10:45] VITALS: BP 167/108; PULSE 93; RESP 17; O2SAT 99
--- NOTE | 2025-02-25 10:46 | PC.NURSE ---
Patient came out of the MRI procedure with hives on face and patient stated she felt congested. Called Dr. Rangel and he ordered benadryl 50mg. Benadryl given. A few minutes later the patient stated she is no longer feeling congested but is drowsy. Explained to patient that is a normal side effect of benadryl.
[2025-02-25 11:00] VITALS: BP 165/99; PULSE 85; RESP 16; O2SAT 97
[2025-02-25 11:15] VITALS: BP 155/102; PULSE 89; RESP 20; O2SAT 96
--- NOTE | 2025-02-25 11:39 | PC.NURSE ---
Patient is going home after a 1 hour monitoring post mri with contrast allergy. No hives noted on face and patient is feeling better. 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
== END | disposition home or self-care (01) ==
LOC: SMRI 08:59
PROVIDERS: PCP Family Medicine; Referring Provider Internal Medicine Hematology & Oncology; Visit Provider Internal Medicine Hematology & Oncology
DX: C50.112 Malignant neoplasm of central portion of left female breast (principal)
CPT/HCPCS: 70553; A9577; J1200; J1720

== ENCOUNTER 2025-02-28 09:13 | Outpatient (RCR) | payer BC, SELFPAY ==
[2025-02-28 09:46] LABS: Basophils # (Auto) 0.1 Thou/mm3 (0.0-0.2); Basophils % (Auto) 1 % (0-2.5); Eosinophils # (Auto) 0.2 Thou/mm3 (0.0-0.5); Eosinophils % (Auto) 3 % (0-10); Hematocrit 37.4 % (36.0-46.0); Hemoglobin 12.6 g/dL (12.0-16.0); Immature Granulocytes Auto 0.01 Thou/mm3 (0.00-0.00); Lymphocytes # (Auto) 1.7 Thou/mm3 (1.0-4.8); Lymphocytes % (Auto) 28 % (10-50); Mean Corpuscular HGB Conc 33.7 g/dl (31.0-37.0); Mean Corpuscular Hemoglobin 30.7 pg (25.0-35.0); Mean Corpuscular Volume 91 fL (80-100); Monocytes # (Auto) 0.5 Thou/mm3 (0.0-0.8); Monocytes % (Auto) 9 % (0-12); Neutrophils # (Auto) 3.5 Thou/mm3 (1.8-7.7); Neutrophils % (Auto) 59 % (37-80); Nucleated Red Blood Cell # 0.00 Thou/mm3 (0.00-0.00); Nucleated Red Blood Cell % 0 /100 WBC (0); Platelet Count 193 Thou/mm3 (140-440); RDW Standard Deviation 41.8 fL (36.4-46.3); Red Blood Count 4.11 Miln/mm3 (4.00-5.20); White Blood Count 6.0 Thou/mm3 (3.6-11.0)
[2025-02-28 10:10] LABS: Alanine Aminotransferase 24 U/L (10-49); Albumin, Serum 4.5 gm/dL (3.4-4.8); Albumin/Globulin Ratio 1.9 (1.2-2.2); Alkaline Phosphatase 91 U/L (46-116); Anion Gap 10 (7-16); Aspartate Amino Transferase 25 U/L (0-34); BUN/Creatinine Ratio 16 Ratio (12-20); Bilirubin,Total 0.4 mg/dL (0.3-1.2); Blood Urea Nitrogen 13 mg/dL (9-23); Calcium 10.1 mg/dL (8.3-10.6); Calcium (Corrected) 10.1 mg/dL (8.5-10.1); Carbon Dioxide 29.3 mMol/L (20.0-31.0); Chloride 103 mMol/L (98-107); Creatinine (Component) 0.8 mg/dL (0.6-1.3); Globulin 2.4 gm/dL (2.3-3.5); Glucose 148 mg/dL (74-106); Osmolality,Calculated 286 (275-295); Potassium 3.4 mMol/L (3.4-5.1); Sodium 142 mMol/L (136-145); Total Protein 6.9 gm/dL (5.7-8.2); eGFR > 60 See Note
== END 2025-03-13 23:59 | disposition home or self-care (01) ==
LOC: SCTC 09:13
PROVIDERS: PCP Family Medicine; Referring Provider Family Medicine; Visit Provider Internal Medicine Hematology & Oncology
DX: Z51.11 Encounter for antineoplastic chemotherapy (principal); C50.112 Malignant neoplasm of central portion of left female breast; C78.7 Secondary malignant neoplasm of liver and intrahepatic bile duct; C78.00 Secondary malignant neoplasm of unspecified lung; Z17.0 Estrogen receptor positive status [ER+]; Z17.21 Progesterone receptor positive status; Z17.31 Human epidermal growth factor receptor 2 positive status; Z90.12 Acquired absence of left breast and nipple
CPT/HCPCS: 80053; 85025; 96413; A4216; J1642; J7040; J7050; Q5117

== ENCOUNTER 2025-03-21 09:03 | Outpatient (RCR) | payer BC, SELFPAY ==
--- NOTE | 2025-03-16 14:51 | CTCFLWUP_ITS ---
Patient: ANNA TINSLEY : 1965 Page 3 of 5 FOLLOW UP NOTE DATE OF SERVICE: 03/16/2025 NAME: ANNA TINSLEY ACCOUNT: [id number] : 1965 AGE: 60 INTERVAL HISTORY: Patient is doing well.. patient followed [facility] and have brought in recommendation .. 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 Previously patient was treated with tamoxifen as well as anastrozole. She also received 2 doses of Faslodex.n Fam-trastuzumab deruxtecan-nxki ( Enhertu) which caused pneumonitis and was stopped and patient's restarted on Herceptin in September 2024 TREATMENT HISTORY: Care?Plan Start?Date Cycle Day Intent Fam?-?trastuzumab?deruxtecan 10/09/2023 1 21 Palliative Trastuzumab?6?mg/kg? 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 12/15/2014: Patient underwent left breast biopsy. Pathology showed invasive lobular carcinoma. She had palpable supraclavicular lymph node. The tumor was ER positive, NC positive as well as HER2/murtaza Positive (3+). Ms. Tinsley was treated with neoadjuvant chemotherapy including Herceptin. Ms. Tinsley had left mastectomy and sentinel lymph node biopsy. She had 4.6 cm residual tumor with 1 of 2 sentinel lymph nodes being positive. Ms. Tinsley had adjuvant radiation therapy and treated with tamoxifen following radiation therapy. August 2019: Patient felt a lump left chest wall. 09/30/2019: FNA with attempted local excision on 10/08/2019. Pathology showed 1.3 cm tumor, mixed invasive ductal and lobular carcinoma. Again the tumor was ER, NC as well as HER2/murtaza positive inferior lateral and posterior margins were positive. 11/23/2019: Patient underwent wider resection including removal of the pectoralis major muscle followed by reconstruction with left latissimus dorsi flap.. Tamoxifen was discontinued and she was started on letrozole. 10/31/2022: Patient was found to have right supraclavicular lymphadenopathy. Biopsy showed metastatic breast cancer. She was also found to have involvement of the liver and the lungs patient was started on Faslodex. [facility] opinion [facility]. Faslodex was discontinued after 2 doses. Patient was started on Trastuzumab Deruxtecan (Enhertu). 12/20/2022: Patient received first dose of Trastuzumab Deruxtecan (Enhertu) /05/2023: CT scan of the chest abdomen and pelvis with contrast was done which was compared to CT scans done on 02/28/2023.10/09/2023 Fam-trastuzumab deruxtecan-nxki ( Enhertu). September 2024 patient developed pneumonitis bilateral lungs. 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 anastrozole - 1 mg 1 tab Daily 2. multivitamin - 1 Capsule Daily Medications Last Reconciled by Amelia Ramírez MD on 03/16/2025 ALLERGIES: No Known Drug Allergies; iv contrast REVIEW OF SYSTEMS: A complete 14-point review of systems was performed and is negative except as noted in interval history. PHYSICAL EXAMINATION: VITAL SIGNS: Temperature?97.9, B/P?171/112, Oxygen?Saturation?98% Weight?150?lbs (Change?since?02/28/25:?0.6?lbs) PAIN: 0 - No pain ECOG Performance Status: 0 - Asymptomatic and fully active GENERAL APPEARANCE: Appears well, in no apparent distress, appropriately interactive. HEENT: Normocephalic, no temporal wasting, normal conjunctiva, no scleral icterus, normal hearing, lips without lesions, neck normal range of motion. CARDIOVASCULAR: Not assessed. PULMONARY: Normal respiratory effort, no respiratory distress or use of accessory muscles, speaking in full sentences, no tachypnea. EXTREMITIES: No pedal edema or cyanosis. SKIN: Normal skin appearance. NEUROLOGIC: Alert and oriented x4. PSHYCHIATRIC: Appropriate affect, mood normal, behavior normal, intact thought and speech. LABORATORY DATA: I have personally reviewed and interpreted each of the patient?s relevant lab tests, abnormal findings are below: Date 02/07/25 02/28/25 ??WHITE?BLOOD?COUNT?(Thou/mm3) 5.9 6.0 ??RED?BLOOD?COUNT?(Miln/mm3) 4.13 4.11 ??HEMOGLOBIN?(gm/dl) 12.6 12.6 ??HEMATOCRIT?(%) 38.0 37.4 ??PLATELET?COUNT?(Thou/mm3) 177 193 ??NEUTROPHILS?%,?AUTO?(%) 59 59 ??LYMPH?%,?AUTO?(%) 28 28 ??NEUTROPHILS,?AUTO?(Thou/mm3) 3.5 3.5 ??GLUCOSE,RANDOM?(mg/dL) 172?H 148?H ??BLOOD?UREA?NITROGEN?(mg/dL) 16 13 ??CREATININE?(mg/dL) 0.80 0.80 ??SODIUM?(mmol/L) 142 142 ??POTASSIUM?(mmol/L) 3.7 3.4 ??CHLORIDE?(mmol/L) 104 103 ??CrCl?(CandG)?(ml/min) 80.32 80.00 ??AST/SGOT?(Unit/L) 27 25 ??ALT/SGPT?(Unit/L) 23 24 ??ALKALINE?PHOSPHATASE?(Unit/L) 84 91 ??BILIRUBIN,?TOTAL?(mg/dL) 0.5 0.4 ??PROTEIN?TOTAL?(gm/dl) 7.2 6.9 ??ALBUMIN,?SERUM?(gm/dl) 4.2 4.5 ??GLOBULIN?(gm/dl) 3.0 2.4 ??ALBUMIN/GLOBULIN?RATIO 1.4 1.9 ??CALCIUM,?SERUM?(mg/dL) 9.6 10.1 ??CALCIUM?SERUM?(CORRECTED)?(mg/dL) 9.6 10.1 ASSESSMENT/PLAN: Metastatic ER positive, NC positive, HER2/murtaza overexpressed 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 Patient was initially diagnosed in 2014. She was in menopause at that time. Patient received antiendocrine therapy and Herceptin in the adjuvant setting. She did have residual tumor after the neoadjuvant therapy but only Herceptin was offered and not TDM 1. I am not sure if TDM 1 was approved at that time. Patient then continued letrozole for few months before stopping it. At reoccurrence patient was initially started on Faslodex after she was not able to tolerated it was stopped. The patient is started back on Fam-trastuzumab deruxtecan-nxki ( Enhertu) here in [place] on 10/09/2023 and stopped in September 2024 after she developed pneumonitis She is not taking Herceptin Arimidex 1 mg tablet daily Will add perjeta to regimen Will get staging scans Referral placed to tertiary care for oncology-[facility] for second opinion and further management as per patient's request ORDERS: Order # Description [id number] Comprehensive Metabolic Panel - 12 + CBC with Auto Diff [id number] Cardiac ECHO [id number] CBC + Comprehensive Metabolic Panel [id number] Lab Appointment [id number] Follow Up Appointment [id number] Infusion 1 Hour [id number] CBC + Comprehensive Metabolic Panel [id number] Lab Appointment [id number] Follow Up Appointment [id number] Infusion 1 Hour [id number] CBC + Comprehensive Metabolic Panel [id number] Lab Appointment [id number] Follow Up Appointment [id number] Cardiac ECHO [id number] Infusion 1 Hour [id number] Cardiac ECHO [id number] CBC + Comprehensive Metabolic Panel [id number] Lab Appointment [id number] Follow Up Appointment [id number] Infusion 1 Hour [id number] CBC + Comprehensive Metabolic Panel [id number] Lab Appointment [id number] Follow Up Appointment [id number] Infusion 1 Hour [id number] CBC + Comprehensive Metabolic Panel [id number] Lab Appointment [id number] Follow Up Appointment [id number] Cardiac ECHO RETURN TO CLINIC: I reviewed the diagnosis, prognosis, and recommended treatment/procedure options with the patient (and/or their legal livestock sales representative), including the potential benefits, risks, side effects and alternative therapies. We also discussed the option of no treatment and the possibility of clinical trial participation, if applicable. All questions were addressed, and they demonstrated understanding. They provided informed consent to proceed with the proposed plan of care. BILLING AND COMPLIANCE: I reviewed external records from providers outside my specialty as summarized above. I spent a total of 50 minutes on this patient?s care on the day of their visit excluding time spent related to any billed procedures. This time includes time spent with the patient as well as time spent documenting in the medical record, reviewing patients records and tests, obtaining history, placing orders, communicating with other healthcare professionals, counseling the patient, family or caregiver, and/or care coordination for the diagnoses above. Electronically Signed by: Cuauhtemoc Ortega MD T: 2:49 PM CC: PCP: Referring: Samia Ramírez This document was completed utilizing speech recognition software. Grammatical errors, random word insertions, pronoun errors, and incomplete sentences are an occasional consequence of this system due to software limitations, ambient noise, and hardware issues. Any formal questions or concerns about the content, text or information contained within the body of this dictation should be directly addressed to the provider for clarification.
[2025-03-21 09:49] LABS: Basophils # (Auto) 0.1 Thou/mm3 (0.0-0.2); Basophils % (Auto) 1 % (0-2.5); Eosinophils # (Auto) 0.2 Thou/mm3 (0.0-0.5); Eosinophils % (Auto) 3 % (0-10); Hematocrit 37.5 % (36.0-46.0); Hemoglobin 12.4 g/dL (12.0-16.0); Immature Granulocytes Auto 0.02 Thou/mm3 (0.00-0.00); Lymphocytes # (Auto) 1.5 Thou/mm3 (1.0-4.8); Lymphocytes % (Auto) 25 % (10-50); Mean Corpuscular HGB Conc 33.1 g/dl (31.0-37.0); Mean Corpuscular Hemoglobin 30.1 pg (25.0-35.0); Mean Corpuscular Volume 91 fL (80-100); Monocytes # (Auto) 0.5 Thou/mm3 (0.0-0.8); Monocytes % (Auto) 9 % (0-12); Neutrophils # (Auto) 3.5 Thou/mm3 (1.8-7.7); Neutrophils % (Auto) 61 % (37-80); Nucleated Red Blood Cell # 0.00 Thou/mm3 (0.00-0.00); Nucleated Red Blood Cell % 0 /100 WBC (0); Platelet Count 188 Thou/mm3 (140-440); RDW Standard Deviation 42.5 fL (36.4-46.3); Red Blood Count 4.12 Miln/mm3 (4.00-5.20); White Blood Count 5.8 Thou/mm3 (3.6-11.0)
[2025-03-21 10:06] LABS: Alanine Aminotransferase 28 U/L (10-49); Albumin, Serum 4.4 gm/dL (3.4-4.8); Albumin/Globulin Ratio 1.4 (1.2-2.2); Alkaline Phosphatase 91 U/L (46-116); Anion Gap 10 (7-16); Aspartate Amino Transferase 29 U/L (0-34); BUN/Creatinine Ratio 20 Ratio (12-20); Bilirubin,Total 0.5 mg/dL (0.3-1.2); Blood Urea Nitrogen 16 mg/dL (9-23); Calcium 10.0 mg/dL (8.3-10.6); Calcium (Corrected) 10.0 mg/dL (8.5-10.1); Carbon Dioxide 29.2 mMol/L (20.0-31.0); Chloride 102 mMol/L (98-107); Creatinine (Component) 0.8 mg/dL (0.6-1.3); Globulin 3.2 gm/dL (2.3-3.5); Glucose 161 mg/dL (74-106); Osmolality,Calculated 285 (275-295); Potassium 3.7 mMol/L (3.4-5.1); Sodium 141 mMol/L (136-145); Total Protein 7.6 gm/dL (5.7-8.2); eGFR > 60 See Note
== END 2025-04-13 23:59 | disposition home or self-care (01) ==
LOC: SCTC 09:03
PROVIDERS: PCP Family Medicine; Referring Provider Family Medicine; Visit Provider Internal Medicine Hematology & Oncology
DX: Z51.11 Encounter for antineoplastic chemotherapy (principal); C50.112 Malignant neoplasm of central portion of left female breast; C78.7 Secondary malignant neoplasm of liver and intrahepatic bile duct; C78.00 Secondary malignant neoplasm of unspecified lung; Z17.0 Estrogen receptor positive status [ER+]; Z17.21 Progesterone receptor positive status; Z17.31 Human epidermal growth factor receptor 2 positive status; Z90.12 Acquired absence of left breast and nipple; Z79.811 Long term (current) use of aromatase inhibitors
CPT/HCPCS: 80053; 85025; 96413; 99212; A4216; J1642; J7040; J7050; Q5117; G0463